=== PATIENT | male | born 1965 | race Caucasian/White ===

== ENCOUNTER 2018-06-17 09:46 | Inpatient (IN) | payer MEDICAID, OTHER ==
[~2018-06-17] VITALS: Ht 185.4 cm; Wt 93.0 kg
[~2018-06-17 09:46] MED LIST: ARIP5TAB4 PO; ASPI-10 PO; ATOR20TA66 PO; CYCL-1 PO; DIVA500T2 PO; DULO60CA64; HYDR-3686 PO; KEP500T PO; LORA-660 PO; METO25TA6 PO; MULT-1085 PO; NAPR-1154 PO
[2018-06-17 10:13] LABS: BASOPHILS # (AUTO) 0.1 X10'3 (0-0.2); BASOPHILS % (AUTO) 1.5 % (0-1); EOSINOPHILS # (AUTO) 0.1 X10'3 (0-0.9); EOSINOPHILS % (AUTO) 1.2 % (0-6); HEMATOCRIT 45.2 % (42.0-52.0); HEMOGLOBIN 15.4 g/dl (14.0-17.9); LYMPHOCYTES # (AUTO) 1.1 X10'3 (1.1-4.8); LYMPHOCYTES % (AUTO) 18.5 % (21-51); MEAN CORPUSCULAR HEMOGLOBIN 31.3 PG (27.0-31.0); MEAN CORPUSCULAR VOLUME 92.1 FL (78-98); MEAN PLATELET VOLUME 7.6 FL (7.4-10.4); MONOCYTES # (AUTO) 0.5 X10'3 (0-0.9); MONOCYTES % (AUTO) 7.7 % (2-12); NEUTROPHILS # (AUTO) 4.2 X10'3 (1.8-7.7); NEUTROPHILS % (AUTO) 71.1 % (42-75); PLATELET COUNT 235 X10'3 (140-440); RED BLOOD COUNT 4.91 X10'6 (4.70-6.10); RED CELL DISTRIBUTION WIDTH 13.8 % (11.5-14.5); WHITE BLOOD COUNT 5.9 X10'3 (4.5-11.0)
[2018-06-17 10:23] LABS: INR 0.9 INR; PARTIAL THROMBOPLASTIN TIME 27 SECONDS (22-32); PROTHROMBIN TIME 9.8 SECONDS (9.0-12.0)
[2018-06-17 10:27] LABS: ALANINE AMINOTRANSFERASE 35 U/L (12-78); ALBUMIN 4.1 G/DL (3.4-5.0); ALBUMIN/GLOBULIN RATIO 1.2 (1.1-1.5); ALKALINE PHOSPHATASE 49 IU/L (46-116); ANION GAP 10 (8-16); ASPARTATE AMINO TRANSFERASE 29 U/L (10-37); BLOOD UREA NITROGEN 14 MG/DL (7-18); BUN/CREATININE RATIO 12.3 (5.4-32.0); CHLORIDE 104 MMOL/L (99-107); CREATININE 1.14 MG/DL (0.60-1.10); GLUCOSE 93 MG/DL (70-104); POTASSIUM 4.4 MMOL/L (3.5-5.1); SODIUM 139 MMOL/L (135-145); TOTAL PROTEIN 7.4 G/DL (6.4-8.2); eGFR 68 ML/MIN
[2018-06-17] MEDS: nitroGLYCERIN 0.4mg SUBLingual tab SL PRN ×5 (11:28→18:00)
[2018-06-17] MEDS ORDERED: acetaminophen 325mg tablet PO PRN (13:00)
[2018-06-17] MEDS ORDERED: diphenhydrAMINE 25mg capsule PO PRN (13:00)
[2018-06-17] MEDS ORDERED: magnesium hydroxide 30ml (MOM) UD suspension PO PRN (13:00)
[2018-06-17] MEDS ORDERED: metoclopramide 5 mg/ml inj IV PRN (13:00)
[2018-06-17] MEDS ORDERED: mag hydrox/Alum hydrox/simeth 30ml oral suspension PO PRN (13:00)
[2018-06-17] MEDS ORDERED: ondansetron/PF 4mg/2ml inj IV PRN (13:00)
[2018-06-17] MEDS ORDERED: diphenhydrAMINE 50 mg/ml inj IV PRN (13:00)
[2018-06-17] MEDS ORDERED: acetaminophen 650mg rectal suppository RC PRN (13:00)
[2018-06-17] MEDS ORDERED: HYDROmorphone inj. 0.5 MG/0.5 ML DISP.SYRIN IV PRN ×2 (13:00)
[2018-06-17] MEDS ORDERED: morphine 4 MG/ML inj SYRINge IV PRN (13:00)
[2018-06-17] MEDS ORDERED: Dextrose 10%-water IV solution 1,000 ML IV PRN (13:09)
[2018-06-17] MEDS ORDERED: fat emulsion IV 100 ML, MVI, adult No.4 with vit. K 5 ML, Trace element-5 inj. 0.5 ML i... IV SCH ×4 (13:09)
[2018-06-17] MEDS ORDERED: magnesium 1gm/100ml D5W IVPB 100 ML IV PRN (13:10)
[2018-06-17] MEDS ORDERED: magnesium 4gm in 100ml NS 100 ML IV PRN (13:10)
[2018-06-17] MEDS ORDERED: magnesium Cl slow-release 64mg tablet PO PRN (13:10)
[2018-06-17] MEDS ORDERED: lisinopril 10 MG tablet PO ONE (13:30)
[2018-06-17] MEDS ORDERED: CAFFEINE CITRATE 60 MG/3 ML injection vial IV PRN (13:30)
[2018-06-17] MEDS ORDERED: metoprolol tartrate 1mg/ml inj IV PRN (13:30)
[2018-06-17] MEDS ORDERED: regadenoson 0.4mg/5ml syringe IV PRN (13:30)
[2018-06-17] MEDS ORDERED: nitroGLYCERIN 0.4mg SUBLingual tab SL PRN (13:30)
[2018-06-17] MEDS: normal saline 1000ml 1,000 ML IV SCH ×2 (13:33→18:28)
[2018-06-17 13:51] LABS: MAGNESIUM 1.9 MG/DL (1.5-2.4)
[2018-06-17 13:55] LABS: D-DIMER 0.27 MG/L FEU (0-0.50)
[2018-06-17 14:07] LABS: HEMOGLOBIN A1C 5.6 % (4.5-6.2)
[2018-06-17] MEDS ORDERED: LURA120T PO (15:16)
[2018-06-17] MEDS ORDERED: LAMO200T PO (15:16)
[2018-06-17] MEDS ORDERED: METO-539 PO (15:16)
[2018-06-17 15:51] LABS: CLARITY,URINE CLEAR (Clear); COLOR,URINE YELLOW (Yellow); GLUCOSE, URINE NEGATIVE (Neg); KETONES,URINE 15 mg/dl (Neg); LEUKOCYTE ESTERASE ,URINE NEGATIVE (Neg); NITRITES, URINE NEGATIVE (Neg); OCCULT BLOOD,URINE NEGATIVE (Neg); PROTEIN,URINE NEGATIVE (Neg); UROBILINOGEN,URINE 0.2 E.U/dL (0.2-1.0)
[2018-06-17 15:53] LABS: UA COLLECTION TYPE CLN CATCH MIDSTREAM
[2018-06-17 16:11] VITALS: BP 134/82
[2018-06-17] MEDS ORDERED: cyclobenzaprine 10mg tablet PO PRN (17:05)
[2018-06-17] MEDS ORDERED: non-formulary drug (Lurasidone HCl (Latuda) 1 TAB) PO SCH (17:05)
[2018-06-17] MEDS ORDERED: lurasidone 60mg tablet PO SCH (17:15)
[2018-06-17 17:24] VITALS: BP 122/87
[2018-06-17 17:55] VITALS: BP 131/98
[2018-06-17 18:00] VITALS: BP 133/100
[2018-06-17 18:17] VITALS: BP 113/74
[2018-06-17] MEDS: atorvastatin 20mg tablet PO SCH (18:24)
[2018-06-17 19:30] VITALS: BP 116/81
[2018-06-17] MEDS: docusate sod 100mg capsule PO SCH (20:00)
[2018-06-17] MEDS: enoxaparin 30mg/0.3ml syringe SQ SCH (20:18)
[2018-06-17] MEDS: levetiracetam 250mg tablet PO SCH (20:19)
[2018-06-17] MEDS: famotidine 20mg tablet PO SCH (20:19)
[2018-06-17] MEDS ORDERED: lurasidone 60mg tablet PO ONE (20:35)
[2018-06-17] MEDS ORDERED: non-formulary drug (Lamotrigine 1 TAB) PO SCH (21:00)
[2018-06-17] MEDS ORDERED: LEVETIRACETAM PO SCH (21:00)
[2018-06-17] MEDS ORDERED: temazepam 15mg capsule PO PRN (21:00)
[2018-06-17] MEDS: lamoTRIgine 100mg tablet PO SCH (22:06)
[2018-06-18] VITALS (16 sets, daily range): BP systolic 109–144; BP diastolic 75–93
[2018-06-18 04:05] LABS: BASOPHILS # (AUTO) 0.1 X10'3 (0-0.2); BASOPHILS % (AUTO) 1.3 % (0-1); EOSINOPHILS # (AUTO) 0.2 X10'3 (0-0.9); EOSINOPHILS % (AUTO) 2.6 % (0-6); HEMATOCRIT 42.9 % (42.0-52.0); HEMOGLOBIN 14.5 g/dl (14.0-17.9); LYMPHOCYTES # (AUTO) 1.4 X10'3 (1.1-4.8); LYMPHOCYTES % (AUTO) 23.2 % (21-51); MEAN CORPUSCULAR HEMOGLOBIN 31.5 PG (27.0-31.0); MEAN CORPUSCULAR HGB CONC 33.9 % (33.0-36.5); MEAN CORPUSCULAR VOLUME 92.9 FL (78-98); MEAN PLATELET VOLUME 7.9 FL (7.4-10.4); MONOCYTES # (AUTO) 0.4 X10'3 (0-0.9); MONOCYTES % (AUTO) 7.5 % (2-12); NEUTROPHILS # (AUTO) 3.8 X10'3 (1.8-7.7); NEUTROPHILS % (AUTO) 65.4 % (42-75); PLATELET COUNT 182 X10'3 (140-440); RED BLOOD COUNT 4.61 X10'6 (4.70-6.10); RED CELL DISTRIBUTION WIDTH 13.7 % (11.5-14.5); WHITE BLOOD COUNT 5.9 X10'3 (4.5-11.0)
[2018-06-18] MEDS: normal saline 1000ml 1,000 ML IV SCH ×2 (04:16→16:57)
[2018-06-18 04:24] LABS: ALANINE AMINOTRANSFERASE 32 U/L (12-78); ALBUMIN 3.3 G/DL (3.4-5.0); ALBUMIN/GLOBULIN RATIO 1.1 (1.1-1.5); ALKALINE PHOSPHATASE 38 IU/L (46-116); ANION GAP 6 (8-16); ASPARTATE AMINO TRANSFERASE 14 U/L (10-37); BILIRUBIN,TOTAL 0.9 MG/DL (0.1-1.0); BLOOD UREA NITROGEN 11 MG/DL (7-18); BUN/CREATININE RATIO 10.1 (5.4-32.0); CALCIUM 8.1 MG/DL (8.5-10.1); CHLORIDE 106 MMOL/L (99-107); CHOL/HDL RATIO 3.6 (0.00-4.99); CHOLESTEROL 162 MG/DL (0-200); CREATININE 1.09 MG/DL (0.60-1.10); GLUCOSE 94 MG/DL (70-104); HDL CHOLESTEROL 45 MG/DL (35-60); LDL CHOLESTEROL 94 MG/DL (50-100); POTASSIUM 3.9 MMOL/L (3.5-5.1); SODIUM 137 MMOL/L (135-145); TOTAL CARBON DIOXIDE 24.7 MMOL/L (24-32); TOTAL PROTEIN 6.2 G/DL (6.4-8.2); TRIGLYCERIDES 165 MG/DL (20-135); eGFR 71 ML/MIN
[2018-06-18] MEDS ORDERED: metoprolol succinate 25mg (24-HOUR) SR. Tablet PO SCH (08:00)
[2018-06-18] MEDS: docusate sod 100mg capsule PO SCH (08:00)
[2018-06-18] MEDS: atorvastatin 20mg tablet PO SCH (08:29)
[2018-06-18] MEDS: levetiracetam 250mg tablet PO SCH ×3 (08:29→22:10)
[2018-06-18] MEDS: aspirin 325mg tablet PO SCH (08:30)
[2018-06-18] MEDS: enoxaparin 30mg/0.3ml syringe SQ SCH (08:30)
[2018-06-18] MEDS: lamoTRIgine 100mg tablet PO SCH ×3 (08:33→22:10)
[2018-06-18] MEDS: morphine 4 MG/ML inj SYRINge IV PRN ×2 (08:48→15:35)
[2018-06-18] MEDS ORDERED: CAFFEINE CITRATE 60 MG/3 ML injection vial IV ONE (09:30)
[2018-06-18] MEDS ORDERED: regadenoson 0.4mg/5ml syringe IV ONE (09:30)
[2018-06-18] MEDS ORDERED: pneumococcal 23-VAL P-sac vacc 25 mcg/0.5ml vial IMVAC ONE (10:00)
[2018-06-18] MEDS: nitroGLYCERIN 0.2mg/hour patch TD SCH ×2 (10:53→22:53)
[2018-06-18] MEDS: pantoprazole 40 MG vial IV SCH (19:00)
[2018-06-18] MEDS ORDERED: LIDOcaine 1% 30ml preserv. free vial ONE (19:06)
[2018-06-18] MEDS ORDERED: iohexol 350MG/ML 100ml bottle IV ONE (19:06)
[2018-06-18] MEDS ORDERED: iohexol 350 MG/ML 50ML vial IV ONE (19:06)
[2018-06-18] MEDS ORDERED: fentaNYL/PF 50MCG/1 ML 2ML syringe ONE (19:06)
[2018-06-18] MEDS ORDERED: midazolam 2 mg/2 ml injection ONE ×2 (19:06→19:31)
[2018-06-18] MEDS ORDERED: proCHLORperazine 10 MG/2 ml inj ONE (19:30)
[2018-06-18] MEDS ORDERED: nitroGLYCERIN-Tridil 50MG/D5W 250 ML IV ONE (19:38)
[2018-06-18] MEDS ORDERED: proCHLORperazine 10 MG/2 ml inj IV PRN (20:50)
[2018-06-18] MEDS ORDERED: cyclobenzaprine 10mg tablet PO PRN (20:50)
[2018-06-18] MEDS ORDERED: nitroGLYCERIN-Tridil 50MG/D5W 250 ML IV SCH (20:50)
[2018-06-18] MEDS ORDERED: morphine 4 MG/ML inj SYRINge IV PRN (20:50)
[2018-06-18] MEDS ORDERED: OXAZEpam 15mg capsule PO PRN (20:50)
[2018-06-18] MEDS ORDERED: magnesium hydroxide 30ml (MOM) UD suspension PO PRN (20:50)
[2018-06-18] MEDS ORDERED: acetaminophen 325mg tablet PO PRN (20:50)
[2018-06-18] MEDS ORDERED: morphine 10mg/ml inj. IV PRN (20:50)
[2018-06-18] MEDS ORDERED: amLODIPine 2.5mg tablet PO ONE (20:55)
[2018-06-18] MEDS ORDERED: morphine 2 MG/ML inj. syringe IV PRN (20:57)
[2018-06-18] MEDS: ALPRAZolam 0.25mg tablet PO SCH (21:00)
[2018-06-18] MEDS: famotidine 20mg tablet PO SCH (22:09)
[2018-06-19] VITALS (11 sets, daily range): BP systolic 125–150; BP diastolic 79–98
[2018-06-19] MEDS: normal saline 1000ml 1,000 ML IV SCH ×2 (04:57→15:03)
[2018-06-19 05:53] LABS: BASOPHILS % (AUTO) 0.3 % (0-1); EOSINOPHILS # (AUTO) 0.1 X10'3 (0-0.9); EOSINOPHILS % (AUTO) 1.1 % (0-6); HEMATOCRIT 39.6 % (42.0-52.0); HEMOGLOBIN 13.6 g/dl (14.0-17.9); LYMPHOCYTES # (AUTO) 1.1 X10'3 (1.1-4.8); LYMPHOCYTES % (AUTO) 15.8 % (21-51); MEAN CORPUSCULAR HEMOGLOBIN 31.7 PG (27.0-31.0); MEAN CORPUSCULAR HGB CONC 34.4 % (33.0-36.5); MEAN CORPUSCULAR VOLUME 92.2 FL (78-98); MEAN PLATELET VOLUME 8.1 FL (7.4-10.4); MONOCYTES # (AUTO) 0.5 X10'3 (0-0.9); MONOCYTES % (AUTO) 6.6 % (2-12); NEUTROPHILS # (AUTO) 5.2 X10'3 (1.8-7.7); NEUTROPHILS % (AUTO) 76.2 % (42-75); PLATELET COUNT 187 X10'3 (140-440); RED CELL DISTRIBUTION WIDTH 13.7 % (11.5-14.5); WHITE BLOOD COUNT 6.8 X10'3 (4.5-11.0)
[2018-06-19 06:19] LABS: ALANINE AMINOTRANSFERASE 35 U/L (12-78); ALBUMIN 3.2 G/DL (3.4-5.0); ALBUMIN/GLOBULIN RATIO 1.2 (1.1-1.5); ALKALINE PHOSPHATASE 35 IU/L (46-116); ANION GAP 7 (8-16); ASPARTATE AMINO TRANSFERASE 16 U/L (10-37); BILIRUBIN,TOTAL 0.8 MG/DL (0.1-1.0); BLOOD UREA NITROGEN 8 MG/DL (7-18); BUN/CREATININE RATIO 7.1 (5.4-32.0); CALCIUM 7.8 MG/DL (8.5-10.1); CHLORIDE 106 MMOL/L (99-107); CREATININE 1.12 MG/DL (0.60-1.10); GLUCOSE 86 MG/DL (70-104); POTASSIUM 3.8 MMOL/L (3.5-5.1); SODIUM 138 MMOL/L (135-145); TOTAL CARBON DIOXIDE 24.7 MMOL/L (24-32); TOTAL PROTEIN 5.9 G/DL (6.4-8.2); eGFR 69 ML/MIN
[2018-06-19] MEDS: docusate sod 100mg capsule PO SCH ×2 (08:05→20:00)
[2018-06-19] MEDS: atorvastatin 20mg tablet PO SCH (08:05)
[2018-06-19] MEDS: aspirin 325mg tablet PO SCH (08:05)
[2018-06-19] MEDS: ALPRAZolam 0.25mg tablet PO SCH ×2 (08:05→20:00)
[2018-06-19] MEDS: levetiracetam 250mg tablet PO SCH ×3 (08:05→20:16)
[2018-06-19] MEDS: amLODIPine 2.5mg tablet PO SCH (08:05)
[2018-06-19] MEDS: lamoTRIgine 100mg tablet PO SCH ×3 (08:05→20:15)
[2018-06-19] MEDS: pantoprazole 40 MG vial IV SCH (08:06)
[2018-06-19] MEDS: enoxaparin 30mg/0.3ml syringe SUBCUT SCH ×2 (08:06→20:15)
[2018-06-19] MEDS: morphine 4 MG/ML inj SYRINge IV PRN (14:05)
[2018-06-19] MEDS ORDERED: morphine 2 MG/ML inj. syringe IV PRN (15:25)
[2018-06-19] MEDS ORDERED: HYDROmorphone 1 mg/ml syringe IV PRN ×2 (15:25)
[2018-06-20] VITALS (9 sets, daily range): BP systolic 122–143; BP diastolic 58–95
[2018-06-20] MEDS: normal saline 1000ml 1,000 ML IV SCH ×2 (00:57→10:57)
[2018-06-20] MEDS: morphine 4 MG/ML inj SYRINge IV PRN (05:55)
[2018-06-20 06:27] LABS: BASOPHILS % (AUTO) 0.2 % (0-1); EOSINOPHILS # (AUTO) 0.1 X10'3 (0-0.9); EOSINOPHILS % (AUTO) 0.9 % (0-6); HEMATOCRIT 43.2 % (42.0-52.0); HEMOGLOBIN 14.7 g/dl (14.0-17.9); LYMPHOCYTES # (AUTO) 0.9 X10'3 (1.1-4.8); LYMPHOCYTES % (AUTO) 11.9 % (21-51); MEAN CORPUSCULAR HEMOGLOBIN 31.6 PG (27.0-31.0); MEAN CORPUSCULAR HGB CONC 34.1 % (33.0-36.5); MEAN CORPUSCULAR VOLUME 92.8 FL (78-98); MEAN PLATELET VOLUME 8.3 FL (7.4-10.4); MONOCYTES # (AUTO) 0.7 X10'3 (0-0.9); MONOCYTES % (AUTO) 8.5 % (2-12); NEUTROPHILS % (AUTO) 78.5 % (42-75); PLATELET COUNT 202 X10'3 (140-440); RED BLOOD COUNT 4.66 X10'6 (4.70-6.10); RED CELL DISTRIBUTION WIDTH 13.4 % (11.5-14.5); WHITE BLOOD COUNT 7.7 X10'3 (4.5-11.0)
[2018-06-20 06:42] LABS: ALANINE AMINOTRANSFERASE 30 U/L (12-78); ALBUMIN 3.5 G/DL (3.4-5.0); ALBUMIN/GLOBULIN RATIO 1.1 (1.1-1.5); ALKALINE PHOSPHATASE 43 IU/L (46-116); ANION GAP 6 (8-16); ASPARTATE AMINO TRANSFERASE 17 U/L (10-37); BILIRUBIN,TOTAL 0.8 MG/DL (0.1-1.0); BLOOD UREA NITROGEN 7 MG/DL (7-18); BUN/CREATININE RATIO 5.9 (5.4-32.0); CALCIUM 8.5 MG/DL (8.5-10.1); CHLORIDE 103 MMOL/L (99-107); CREATININE 1.19 MG/DL (0.60-1.10); GLUCOSE 89 MG/DL (70-104); POTASSIUM 3.9 MMOL/L (3.5-5.1); SODIUM 138 MMOL/L (135-145); TOTAL PROTEIN 6.6 G/DL (6.4-8.2); eGFR 64 ML/MIN
[2018-06-20] MEDS ORDERED: pantoprazole 40mg Tablet.DR PO SCH (07:30)
[2018-06-20] MEDS: ALPRAZolam 0.25mg tablet PO SCH (08:00)
[2018-06-20] MEDS: enoxaparin 30mg/0.3ml syringe SUBCUT SCH (08:00)
[2018-06-20] MEDS: docusate sod 100mg capsule PO SCH (08:04)
[2018-06-20] MEDS: lamoTRIgine 100mg tablet PO SCH (08:04)
[2018-06-20] MEDS: levetiracetam 250mg tablet PO SCH (08:05)
[2018-06-20] MEDS: amLODIPine 2.5mg tablet PO SCH (08:06)
[2018-06-20] MEDS: atorvastatin 20mg tablet PO SCH (08:06)
[2018-06-20] MEDS ORDERED: LIDOcaine Viscous 15ml cup ONE (08:23)
[2018-06-20] MEDS ORDERED: fentaNYL/PF 50MCG/1 ML 2ML syringe ONE (08:23)
[2018-06-20] MEDS ORDERED: MIDAZolam 5mg/5ml vial ONE (08:23)
[2018-06-20] MEDS: aspirin 325mg tablet PO SCH (08:30)
[2018-06-20] MEDS ORDERED: normal saline 1000ml 1,000 ML IV SCH (09:04)
[2018-06-20] MEDS ORDERED: LIDOcaine Viscous 15ml cup PO ONE (09:05)
[2018-06-20] MEDS ORDERED: simethicone 40mg/0.6ml oral drops 30ml MC ONE (09:05)
[2018-06-20] MEDS ORDERED: MIDAZolam 5mg/5ml vial IV PRN (09:05)
[2018-06-20] MEDS ORDERED: fentaNYL/PF 50MCG/1 ML 2ML syringe IV PRN (09:05)
[2018-06-20] MEDS ORDERED: TRAM50TA2 PO (12:22)
[2018-06-20] MEDS ORDERED: ASPI-1265 PO (12:22)
[2018-06-20] MEDS ORDERED: PANT40TA4 PO (12:22)
[2018-06-20] MEDS ORDERED: lurasidone 60mg tablet PO SCH (18:00)
== END 2018-06-20 14:35 | disposition home or self-care (01) | DRG 287 ==
LOC: ER 09:46 → ED HOLD 12:57 → SUR 3N 15:55 → CICU 2S 06-18 20:06 → PCU 3S 06-19 07:02
PROVIDERS: ADMIT Family Medicine; ATTEND Family Medicine
PROC: 4A023N7 Measurement of Cardiac Sampling and Pressure, Left Heart, Percutaneous Approach (ICD-10-PCS; principal; 2018-06-18)
PROC: B2111ZZ Fluoroscopy of Multiple Coronary Arteries using Low Osmolar Contrast (ICD-10-PCS; 2018-06-18)
PROC: B2151ZZ Fluoroscopy of Left Heart using Low Osmolar Contrast (ICD-10-PCS; 2018-06-18)
PROC: B41F1ZZ Fluoroscopy of Right Lower Extremity Arteries using Low Osmolar Contrast (ICD-10-PCS; 2018-06-18)
PROC: 3E033HZ Introduction of Radioactive Substance into Peripheral Vein, Percutaneous Approach (ICD-10-PCS; 2018-06-18)
PROC: 4A02XM4 Measurement of Cardiac Total Activity, External Approach (ICD-10-PCS; 2018-06-18)
PROC: 0DB68ZX Excision of Stomach, Via Natural or Artificial Opening Endoscopic, Diagnostic (ICD-10-PCS; 2018-06-20)
DX: R07.89 Other chest pain (principal); M84.48XA Pathological fracture, other site, initial encounter for fracture; I25.10 Atherosclerotic heart disease of native coronary artery without angina pectoris; G40.909 Epilepsy, unspecified, not intractable, without status epilepticus; I10 Essential (primary) hypertension; F41.9 Anxiety disorder, unspecified; G89.29 Other chronic pain; M54.6 Pain in thoracic spine; K21.9 Gastro-esophageal reflux disease without esophagitis; K31.89 Other diseases of stomach and duodenum; K29.00 Acute gastritis without bleeding; K44.9 Diaphragmatic hernia without obstruction or gangrene; Z79.82 Long term (current) use of aspirin; Z95.5 Presence of coronary angioplasty implant and graft; I25.2 Old myocardial infarction; Z23 Encounter for immunization; Z88.8 Allergy status to other drugs, medicaments and biological substances; Z79.899 Other long term (current) drug therapy
CPT/HCPCS: 36415; 43239; 71045; 72146; 78452; 80053; 80061; 81003; 83036; 83735; 83880; 84484; 85025; 85379; 85610; 85730; 87070; 90732; 93005; 93017; 93458; 99152; 99153; 99285; A4620; A6213; A6257; A9500; C1760; C1769; C9113; G0500; J0780; J1170; J1644; J1650; J2250; J2270; J3010; J3490; J7030; Q9967

== ENCOUNTER 2020-07-26 14:09 | Emergency (ER) | payer MEDICAID, OTHER ==
[~2020-07-26] VITALS: Ht 185.4 cm; Wt 88.0 kg
[~2020-07-26 14:09] MED LIST changes: -ARIP5TAB4 PO; -ASPI-10 PO; -DIVA500T2 PO; -DULO60CA64; -HYDR-3686 PO; +LAMO200T10 PO; -LORA-660 PO; +LURA120T PO; +METO-539 PO; -METO25TA6 PO; -MULT-1085 PO; -NAPR-1154 PO; +PANT40TA54 PO
[2020-07-26 14:13] VITALS: BP 141/81
[2020-07-26] MEDS ORDERED: bacitracin 15gm ointment TP ONE (14:30)
[2020-07-26] MEDS ORDERED: AMOX-422 PO (14:32)
== END 2020-07-26 15:24 | disposition home or self-care (01) ==
LOC: ER 14:09
DX: S30.811A Abrasion of abdominal wall, initial encounter (principal); I25.10 Atherosclerotic heart disease of native coronary artery without angina pectoris; I25.2 Old myocardial infarction; G89.29 Other chronic pain; F41.9 Anxiety disorder, unspecified; Z86.69 Personal history of other diseases of the nervous system and sense organs; Z98.890 Other specified postprocedural states; Z88.8 Allergy status to other drugs, medicaments and biological substances; Z79.2 Long term (current) use of antibiotics; Z79.899 Other long term (current) drug therapy; W54.0XXA Bitten by dog, initial encounter; Y93.89 Activity, other specified; Y92.89 Other specified places as the place of occurrence of the external cause; Y99.8 Other external cause status
CPT/HCPCS: 99283

== ENCOUNTER 2021-01-16 13:18 | Emergency (ER) | payer OTHER ==
[~2021-01-16] VITALS: Ht 185.4 cm; Wt 93.2 kg
[2021-01-16 16:41] VITALS: BP 150/100
--- NOTE | 2021-01-16 16:44 | NUR ---
PT DISCHARGED BEFORE NURSING ASSESSMENTS DONE, DISCHARGED BY KNOT CUTTER
== END 2021-01-16 16:43 | disposition home or self-care (01) ==
LOC: ER 13:19
DX: S09.90XA Unspecified injury of head, initial encounter (principal); I25.10 Atherosclerotic heart disease of native coronary artery without angina pectoris; I25.2 Old myocardial infarction; G89.29 Other chronic pain; F41.9 Anxiety disorder, unspecified; Z86.69 Personal history of other diseases of the nervous system and sense organs; Z98.890 Other specified postprocedural states; Z72.89 Other problems related to lifestyle; Z88.8 Allergy status to other drugs, medicaments and biological substances; Z79.899 Other long term (current) drug therapy; X58.XXXA Exposure to other specified factors, initial encounter; Y93.89 Activity, other specified; Y92.89 Other specified places as the place of occurrence of the external cause; Y99.8 Other external cause status
CPT/HCPCS: 70450; 99284

== ENCOUNTER 2023-04-13 18:13 | Emergency (ER) | payer MEDICAID, OTHER ==
[~2023-04-13] VITALS: Ht 185.4 cm; Wt 90.1 kg
[2023-04-13 18:19] VITALS: BP 140/60
[2023-04-13] MEDS ORDERED: ketorolac trometh. 30mg/ml inj. IM ONE (19:10)
[2023-04-13] MEDS ORDERED: oxyCODONE/APAP 5-325mg tablet PO ONE (19:50)
[2023-04-13] MEDS ORDERED: OXYC-145 PO (19:50)
[2023-04-13] MEDS ORDERED: IBUP-1984 PO (19:50)
== END 2023-04-13 20:06 | disposition home or self-care (01) ==
LOC: ER 18:14
DX: S62.306A Unspecified fracture of fifth metacarpal bone, right hand, initial encounter for closed fracture (principal); Z88.8 Allergy status to other drugs, medicaments and biological substances; Z88.5 Allergy status to narcotic agent; X58.XXXA Exposure to other specified factors, initial encounter; Y93.89 Activity, other specified; Y92.89 Other specified places as the place of occurrence of the external cause; Y99.8 Other external cause status
CPT/HCPCS: 29125; 73130; 96372; 99283; J1885; A6446; A6449

== ENCOUNTER 2023-09-13 14:06 | Emergency (ER) | payer BC, MEDICAID ==
[~2023-09-13] VITALS: Ht 185.4 cm; Wt 84.6 kg
[~2023-09-13 14:06] MED LIST changes: +OXYC-145 PO
[2023-09-13 14:09] VITALS: TEMP 98.2
[2023-09-13 14:53] LABS: URINE AMPHETAMINE SCREEN NEGATIVE (Neg); URINE BARBITUATE SCREEN NEGATIVE (Neg); URINE BENZODIAZEPINES SCREEN NEGATIVE (Neg); URINE CANNABINOID SCREEN POSITIVE (Neg); URINE COCAINE SCREEN POSITIVE (Neg); URINE METHADONE SCREEN NEGATIVE (Neg); URINE OPIATE SCREEN NEGATIVE (Neg); URINE PHENCYCLIDINE SCREEN NEGATIVE (Neg)
[2023-09-13] MEDS ORDERED: LORazepam 2 mg/ml vial IV ONE (15:25)
[2023-09-13 15:27] LABS: BASOPHILS % (AUTO) 0.4 % (0-1); EOSINOPHILS % (AUTO) 0.1 % (0-6); HEMATOCRIT 45.8 % (42.0-52.0); HEMOGLOBIN 15.4 g/dl (14.0-17.9); LYMPHOCYTES # (AUTO) 0.5 X10'3 (1.1-4.8); LYMPHOCYTES % (AUTO) 5.2 % (21-51); MEAN CORPUSCULAR HEMOGLOBIN 33.4 PG (27.0-31.0); MEAN CORPUSCULAR HGB CONC 33.6 g/dL (33.0-36.5); MEAN CORPUSCULAR VOLUME 99.7 FL (78-98); MEAN PLATELET VOLUME 8.1 FL (7.4-10.4); MONOCYTES # (AUTO) 0.6 X10'3 (0-0.9); MONOCYTES % (AUTO) 5.8 % (2-12); NEUTROPHILS # (AUTO) 8.8 X10'3 (1.8-7.7); NEUTROPHILS % (AUTO) 88.5 % (42-75); PLATELET COUNT 207 X10'3 (140-440); RED CELL DISTRIBUTION WIDTH 14.2 % (11.5-14.5); WHITE BLOOD COUNT 9.9 X10'3 (4.5-11.0)
[2023-09-13 15:41] LABS: ALANINE AMINOTRANSFERASE 70 U/L (12-78); ALBUMIN 3.7 G/DL (3.4-5.0); ALBUMIN/GLOBULIN RATIO 1.2 (1.1-1.5); ALKALINE PHOSPHATASE 49 IU/L (46-116); ANION GAP 14 (8-16); ASPARTATE AMINO TRANSFERASE 81 U/L (10-37); BILIRUBIN,TOTAL 1.3 MG/DL (0.1-1.0); BLOOD UREA NITROGEN 10 MG/DL (7-18); BUN/CREATININE RATIO 10.2 (10.0-20.0); CALCIUM 8.5 MG/DL (8.5-10.1); CHLORIDE 98 MMOL/L (99-107); CREATININE 0.98 MG/DL (0.60-1.10); ETHANOL < 10 MG/DL (<10); GLUCOSE 84 MG/DL (70-104); POTASSIUM 3.9 MMOL/L (3.5-5.1); SODIUM 134 MMOL/L (135-145); TOTAL CARBON DIOXIDE 22.4 MMOL/L (24-32); TOTAL PROTEIN 6.9 G/DL (6.4-8.2); eCRCL 95 ML/MIN; eGFR 79 ML/MIN
[2023-09-13 15:44] LABS: CREATINE KINASE 211 U/L (39-308)
[2023-09-13] MEDS: normal saline 1000ml 1,000 ML IV SCH ×2 (16:03→16:24)
[2023-09-13 17:29] VITALS: BP 163/98; PULSE 87; RESP 16; O2SAT 99
== END 2023-09-13 17:25 | disposition home or self-care (01) ==
LOC: ER 14:06
DX: M54.6 Pain in thoracic spine (principal); F14.10 Cocaine abuse, uncomplicated; I25.10 Atherosclerotic heart disease of native coronary artery without angina pectoris; I25.2 Old myocardial infarction; G89.29 Other chronic pain; F41.9 Anxiety disorder, unspecified; Z86.69 Personal history of other diseases of the nervous system and sense organs; Z95.5 Presence of coronary angioplasty implant and graft; Z98.890 Other specified postprocedural states; Z72.89 Other problems related to lifestyle; Z88.5 Allergy status to narcotic agent; Z79.899 Other long term (current) drug therapy
CPT/HCPCS: 36415; 72128; 72131; 80053; 80305; 80320; 82550; 85025; 96361; 96374; 99285; J2060; J7030

== ENCOUNTER 2023-10-13 10:37 | Emergency (ER) | payer BC ==
[~2023-10-13] VITALS: Ht 185.4 cm; Wt 87.8 kg
[2023-10-13 11:29] LABS: BASOPHILS # (AUTO) 0.1 X10'3 (0-0.2); EOSINOPHILS % (AUTO) 0.3 % (0-6); HEMATOCRIT 46.3 % (42.0-52.0); HEMOGLOBIN 15.6 g/dl (14.0-17.9); LYMPHOCYTES # (AUTO) 0.9 X10'3 (1.1-4.8); LYMPHOCYTES % (AUTO) 6.3 % (21-51); MEAN CORPUSCULAR HEMOGLOBIN 32.8 PG (27.0-31.0); MEAN CORPUSCULAR HGB CONC 33.7 g/dL (33.0-36.5); MEAN CORPUSCULAR VOLUME 97.3 FL (78-98); MEAN PLATELET VOLUME 7.7 FL (7.4-10.4); MONOCYTES # (AUTO) 0.7 X10'3 (0-0.9); MONOCYTES % (AUTO) 5.3 % (2-12); NEUTROPHILS # (AUTO) 11.8 X10'3 (1.8-7.7); NEUTROPHILS % (AUTO) 87.1 % (42-75); PLATELET COUNT 216 X10'3 (140-440); RED BLOOD COUNT 4.76 X10'6 (4.70-6.10); RED CELL DISTRIBUTION WIDTH 14.1 % (11.5-14.5); WHITE BLOOD COUNT 13.6 X10'3 (4.5-11.0)
[2023-10-13 11:36] LABS: ALANINE AMINOTRANSFERASE 18 U/L (12-78); ALBUMIN 3.9 G/DL (3.4-5.0); ALBUMIN/GLOBULIN RATIO 1.1 (1.1-1.5); ALKALINE PHOSPHATASE 49 IU/L (46-116); ANION GAP 11 (8-16); ASPARTATE AMINO TRANSFERASE 31 U/L (10-37); BLOOD UREA NITROGEN 8 MG/DL (7-18); BUN/CREATININE RATIO 8.4 (10.0-20.0); CALCIUM 8.9 MG/DL (8.5-10.1); CHLORIDE 101 MMOL/L (99-107); CREATININE 0.95 MG/DL (0.60-1.10); GLUCOSE 96 MG/DL (70-104); POTASSIUM 3.6 MMOL/L (3.5-5.1); SODIUM 137 MMOL/L (135-145); TOTAL PROTEIN 7.6 G/DL (6.4-8.2); eCRCL 98 ML/MIN; eGFR 82 ML/MIN
[2023-10-13 11:44] LABS: ETHANOL < 10 MG/DL (<10)
[2023-10-13] MEDS ORDERED: tetanus & diphtheria toxoid (Td) vaccine 0.5ml IMVAC ONE (12:25)
[2023-10-13] MEDS ORDERED: levetiracetam 250mg tablet PO ONE (12:25)
[2023-10-13] MEDS ORDERED: TETanus/Pertussis (Acell)/Diphther VAC/PF (Tdap-Adult) 0.5ml syringe IMVAC ONE (12:50)
[2023-10-13] MEDS ORDERED: LEVE10002 PO (13:54)
[2023-10-13 14:28] LABS: BILIRUBIN,URINE SMALL (Neg); CLARITY,URINE CLEAR (Clear); COLOR,URINE YELLOW (Yellow); GLUCOSE, URINE NEGATIVE (Neg); KETONES,URINE >=80 mg/dl (Neg); LEUKOCYTE ESTERASE ,URINE NEGATIVE (Neg); NITRITES, URINE NEGATIVE (Neg); OCCULT BLOOD,URINE NEGATIVE (Neg); PH,URINE 6.5 (4.8-8.0); PROTEIN,URINE TRACE mg/dl (Neg); UA COLLECTION TYPE CLN CATCH MIDSTREAM; UROBILINOGEN,URINE 0.2 E.U/dL (0.2-1.0)
[2023-10-13 14:34] LABS: BACTERIA,URINE NONE SEEN /HPF (Neg); RBC,URINE NONE SEEN /HPF (0-2); WBC,URINE 0-4 /HPF (0-4)
[2023-10-13 14:35] LABS: MUCUS STRANDS MODERATE /LPF (Neg); SQUAMOUS EPITHELIAL CELL,UR FEW /LPF (FEW)
[2023-10-13 14:37] LABS: URINE AMPHETAMINE SCREEN NEGATIVE (Neg); URINE BARBITUATE SCREEN NEGATIVE (Neg); URINE BENZODIAZEPINES SCREEN NEGATIVE (Neg); URINE CANNABINOID SCREEN POSITIVE (Neg); URINE COCAINE SCREEN POSITIVE (Neg); URINE METHADONE SCREEN NEGATIVE (Neg); URINE OPIATE SCREEN NEGATIVE (Neg); URINE PHENCYCLIDINE SCREEN NEGATIVE (Neg)
[2023-10-13 15:09] VITALS: BP 139/75; PULSE 67; RESP 15; TEMP 98; O2SAT 98
== END 2023-10-13 15:12 | disposition home or self-care (01) ==
LOC: ER 10:38
DX: S05.32XA Ocular laceration without prolapse or loss of intraocular tissue, left eye, initial encounter (principal); G40.909 Epilepsy, unspecified, not intractable, without status epilepticus; F14.10 Cocaine abuse, uncomplicated; I25.10 Atherosclerotic heart disease of native coronary artery without angina pectoris; I25.2 Old myocardial infarction; F12.90 Cannabis use, unspecified, uncomplicated; Z95.5 Presence of coronary angioplasty implant and graft; Z98.890 Other specified postprocedural states; Z88.8 Allergy status to other drugs, medicaments and biological substances; Z23 Encounter for immunization; Z79.899 Other long term (current) drug therapy; W22.8XXA Striking against or struck by other objects, initial encounter; Y93.89 Activity, other specified; Y92.89 Other specified places as the place of occurrence of the external cause; Y99.8 Other external cause status
CPT/HCPCS: 12011; 36415; 70450; 70486; 71045; 72125; 80053; 80305; 80320; 81001; 82140; 84145; 84484; 85025; 90471; 90715; 93005; 99285

== ENCOUNTER 2023-12-30 08:06 | Inpatient (IN) | payer BC, MEDICAID ==
[2023-12-30] VITALS (13 sets, daily range): BP systolic 104–158; BP diastolic 72–92; PULSE 42–69; RESP 15–18; TEMP 96.9–98.2; O2SAT 97–98
[~2023-12-30] VITALS: Ht 185.4 cm; Wt 94.7 kg
[~2023-12-30 08:06] MED LIST changes: +LEVE10002 PO; +heparin 10,000 units/1 ML INJ ONE; +heparin, porcine-25,000 units/D5-250ml premix IV ONE
[2023-12-30 08:33] LABS: BASOPHILS % (AUTO) 0.3 % (0-1); EOSINOPHILS # (AUTO) 0.2 X10'3 (0-0.9); EOSINOPHILS % (AUTO) 2.5 % (0-6); HEMOGLOBIN 16.4 g/dl (14.0-17.9); LYMPHOCYTES # (AUTO) 1.1 X10'3 (1.1-4.8); LYMPHOCYTES % (AUTO) 13.4 % (21-51); MEAN CORPUSCULAR HEMOGLOBIN 33.5 PG (27.0-31.0); MEAN CORPUSCULAR HGB CONC 34.1 g/dL (33.0-36.5); MEAN CORPUSCULAR VOLUME 98.1 FL (78-98); MEAN PLATELET VOLUME 7.9 FL (7.4-10.4); MONOCYTES # (AUTO) 0.5 X10'3 (0-0.9); MONOCYTES % (AUTO) 6.7 % (2-12); NEUTROPHILS # (AUTO) 6.3 X10'3 (1.8-7.7); NEUTROPHILS % (AUTO) 77.1 % (42-75); PLATELET COUNT 225 X10'3 (140-440); RED BLOOD COUNT 4.89 X10'6 (4.70-6.10); RED CELL DISTRIBUTION WIDTH 14.1 % (11.5-14.5); WHITE BLOOD COUNT 8.2 X10'3 (4.5-11.0)
[2023-12-30 08:46] LABS: ALANINE AMINOTRANSFERASE 25 U/L (12-78); ALBUMIN 3.5 G/DL (3.4-5.0); ALKALINE PHOSPHATASE 49 IU/L (46-116); ANION GAP 8 (8-16); ASPARTATE AMINO TRANSFERASE 22 U/L (10-37); BILIRUBIN,TOTAL 0.6 MG/DL (0.1-1.0); BLOOD UREA NITROGEN 7 MG/DL (7-18); BUN/CREATININE RATIO 6.4 (10.0-20.0); CALCIUM 8.4 MG/DL (8.5-10.1); CHLORIDE 104 MMOL/L (99-107); GLUCOSE 98 MG/DL (70-104); POTASSIUM 4.1 MMOL/L (3.5-5.1); SODIUM 140 MMOL/L (135-145); TOTAL CARBON DIOXIDE 27.8 MMOL/L (24-32); TOTAL PROTEIN 7.1 G/DL (6.4-8.2); eCRCL 85 ML/MIN; eGFR 69 ML/MIN
[2023-12-30] MEDS: aspirin 325mg tablet PO ONE (08:48)
[2023-12-30] MEDS: morphine 2 MG/ML inj. syringe IV ONE (08:48)
[2023-12-30] MEDS: nitroGLYCERIN 1gm ointment UD TP ONE (08:48)
[2023-12-30] MEDS: ondansetron/PF 4mg/2ml inj IV ONE (08:49)
[2023-12-30 08:52] LABS: PRO BRAIN NATRIURETIC PEPTIDE 53 PG/ML (0-125)
[2023-12-30] MEDS: morphine 4 MG/ML inj SYRINge IV ONE (09:06)
[2023-12-30] MEDS ORDERED: diphenhydrAMINE 25mg capsule PO PRN (09:40)
[2023-12-30] MEDS: aspirin 81mg tab.chew PO SCH (09:40)
[2023-12-30] MEDS ORDERED: regadenoson 0.4mg/5ml syringe IV PRN (09:40)
[2023-12-30] MEDS ORDERED: mag hydrox/Alum hydrox/simeth 30ml oral suspension PO PRN (09:40)
[2023-12-30] MEDS ORDERED: hydrALAZINE 20mg/ml inj. IV PRN (09:40)
[2023-12-30] MEDS ORDERED: potassium Cl 40MEQ/1/2NS 520ml 520 ML IV PRN (09:40)
[2023-12-30] MEDS ORDERED: magnesium hydroxide 30ml (MOM) UD suspension PO PRN (09:40)
[2023-12-30] MEDS ORDERED: magnesium Cl slow-release 64mg tablet PO PRN (09:40)
[2023-12-30] MEDS ORDERED: ondansetron/PF 4mg/2ml inj IV PRN (09:40)
[2023-12-30] MEDS ORDERED: potassium Cl 20 mEq SR tablet PO PRN ×2 (09:40)
[2023-12-30] MEDS ORDERED: magnesium 2GM in 50ml NS 50 ML IV PRN (09:40)
[2023-12-30] MEDS ORDERED: aminophylline 250mg/10ml inj. IV PRN (09:40)
[2023-12-30] MEDS ORDERED: metoprolol tartrate 1mg/ml inj IV PRN (09:40)
[2023-12-30] MEDS ORDERED: nitroGLYCERIN 0.4mg SUBLingual tab SL PRN (09:40)
[2023-12-30] MEDS ORDERED: magnesium 4gm in 100ml NS 100 ML IV PRN (09:40)
[2023-12-30] MEDS ORDERED: acetaminophen 325mg tablet PO PRN (09:40)
[2023-12-30 10:25] LABS: MAGNESIUM 2.4 MG/DL (1.5-2.4)
[2023-12-30 10:38] LABS: HEMOGLOBIN A1C 5.2 % (4.5-6.2)
[2023-12-30] MEDS: atorvastatin 20mg tablet PO SCH (10:43)
[2023-12-30] MEDS ORDERED: LIDOcaine 1% 30ml preserv. free vial ONE (10:56)
[2023-12-30] MEDS ORDERED: iohexol 350MG/ML 100ml bottle IV ONE ×2 (10:57→11:19)
[2023-12-30] MEDS ORDERED: midazolam 1 mg/ML 2ml injection ONE (10:57)
[2023-12-30] MEDS ORDERED: heparin 1,000 UNITS/NS 500ml 500 ML ONE (10:57)
[2023-12-30] MEDS ORDERED: fentaNYL/PF 50MCG/1 ML 2ML syringe ONE (10:57)
[2023-12-30] MEDS ORDERED: heparin 25,000 UNIT/250ml bag 250 ML IV PRN (11:05)
[2023-12-30] MEDS: heparin 10,000 units/1 ML INJ IV PRN (11:17)
[2023-12-30] MEDS: heparin 10,000 units/1 ML INJ IV ONE (11:17)
[2023-12-30] MEDS ORDERED: heparin 1,000unit/ml 10ml vial 10 ML ONE (11:27)
[2023-12-30] MEDS ORDERED: clopidogrel 300mg tablet ONE (11:27)
[2023-12-30 11:34] LABS: APTT 29 SECONDS (22-32)
[2023-12-30] MEDS ORDERED: tirofiban 12.5mg in NS 250mL 250 ML IV ONE (11:53)
[2023-12-30] MEDS: morphine 2 MG/ML inj. syringe IV PRN (12:56)
[2023-12-30 12:57] LABS: CHOL/HDL RATIO 4.4 (0.00-4.99); CHOLESTEROL 222 MG/DL (0-200); HDL CHOLESTEROL 50 MG/DL (35-60); LDL CHOLESTEROL 150 MG/DL (50-100); TRIGLYCERIDES 101 MG/DL (20-135)
[2023-12-30] MEDS: tirofiban 12.5mg in NS 250mL IV SCH (17:01)
[2023-12-30 18:07] LABS: BASOPHILS % (AUTO) 0.5 % (0-1); EOSINOPHILS # (AUTO) 0.1 X10'3 (0-0.9); EOSINOPHILS % (AUTO) 0.9 % (0-6); HEMATOCRIT 43.2 % (42.0-52.0); HEMOGLOBIN 14.6 g/dl (14.0-17.9); LYMPHOCYTES % (AUTO) 11.1 % (21-51); MEAN CORPUSCULAR HGB CONC 33.8 g/dL (33.0-36.5); MEAN CORPUSCULAR VOLUME 97.5 FL (78-98); MEAN PLATELET VOLUME 8.6 FL (7.4-10.4); MONOCYTES # (AUTO) 0.7 X10'3 (0-0.9); MONOCYTES % (AUTO) 7.6 % (2-12); NEUTROPHILS # (AUTO) 7.5 X10'3 (1.8-7.7); NEUTROPHILS % (AUTO) 79.9 % (42-75); PLATELET COUNT 205 X10'3 (140-440); RED BLOOD COUNT 4.43 X10'6 (4.70-6.10); WHITE BLOOD COUNT 9.4 X10'3 (4.5-11.0)
[2023-12-30] MEDS: docusate sod 100mg capsule PO SCH (20:00)
[2023-12-30] MEDS: K and/or MAG REPLACEMENT MC SCH (20:00)
[2023-12-30] MEDS ORDERED: ticagrelor 90mg tablet PO SCH (20:00)
[2023-12-30] MEDS ORDERED: temazepam 15mg capsule PO PRN (21:00)
[2023-12-31 02:00] VITALS: BP 124/89; PULSE 62; RESP 18; TEMP 97.3; O2SAT 96
[2023-12-31 06:00] VITALS: BP 131/81; PULSE 63; RESP 16; TEMP 97.8; O2SAT 98
[2023-12-31 06:48] LABS: BASOPHILS % (AUTO) 0.4 % (0-1); EOSINOPHILS # (AUTO) 0.2 X10'3 (0-0.9); EOSINOPHILS % (AUTO) 2.3 % (0-6); HEMATOCRIT 45.6 % (42.0-52.0); HEMOGLOBIN 15.6 g/dl (14.0-17.9); LYMPHOCYTES % (AUTO) 14.7 % (21-51); MEAN CORPUSCULAR HEMOGLOBIN 33.5 PG (27.0-31.0); MEAN CORPUSCULAR HGB CONC 34.1 g/dL (33.0-36.5); MEAN PLATELET VOLUME 8.4 FL (7.4-10.4); MONOCYTES # (AUTO) 0.7 X10'3 (0-0.9); MONOCYTES % (AUTO) 9.8 % (2-12); NEUTROPHILS # (AUTO) 5.2 X10'3 (1.8-7.7); NEUTROPHILS % (AUTO) 72.8 % (42-75); PLATELET COUNT 195 X10'3 (140-440); RED BLOOD COUNT 4.65 X10'6 (4.70-6.10); WHITE BLOOD COUNT 7.1 X10'3 (4.5-11.0)
[2023-12-31 06:57] LABS: ALANINE AMINOTRANSFERASE 22 U/L (12-78); ALBUMIN 3.1 G/DL (3.4-5.0); ALKALINE PHOSPHATASE 45 IU/L (46-116); ANION GAP 8 (8-16); ASPARTATE AMINO TRANSFERASE 27 U/L (10-37); BILIRUBIN,TOTAL 1.3 MG/DL (0.1-1.0); BLOOD UREA NITROGEN 6 MG/DL (7-18); BUN/CREATININE RATIO 6.1 (10.0-20.0); CALCIUM 7.9 MG/DL (8.5-10.1); CHLORIDE 106 MMOL/L (99-107); CHOL/HDL RATIO 4.8 (0.00-4.99); CHOLESTEROL 197 MG/DL (0-200); CREATININE 0.99 MG/DL (0.60-1.10); GLUCOSE 97 MG/DL (70-104); HDL CHOLESTEROL 41 MG/DL (35-60); LDL CHOLESTEROL 133 MG/DL (50-100); MAGNESIUM 1.9 MG/DL (1.5-2.4); POTASSIUM 3.8 MMOL/L (3.5-5.1); SODIUM 138 MMOL/L (135-145); TOTAL CARBON DIOXIDE 23.6 MMOL/L (24-32); TOTAL PROTEIN 6.2 G/DL (6.4-8.2); TRIGLYCERIDES 109 MG/DL (20-135); eCRCL 94 ML/MIN; eGFR 78 ML/MIN
[2023-12-31 08:00] VITALS: RESP 16; O2SAT 98
[2023-12-31] MEDS ORDERED: atorvastatin 20mg tablet PO SCH (08:00)
[2023-12-31] MEDS ORDERED: enoxaparin 40mg/0.4ml syringe SUBCUT SCH (08:00)
[2023-12-31] MEDS: clopidogrel 75mg tablet PO SCH (08:14)
[2023-12-31] MEDS: atorvastatin 20mg tablet PO SCH (08:14)
[2023-12-31] MEDS: aspirin 81mg tab.chew PO SCH (08:14)
[2023-12-31 11:00] VITALS: BP 134/86; PULSE 55; RESP 17; TEMP 97.6; O2SAT 95
== END 2023-12-31 14:30 | disposition left against medical advice (07) | DRG 175 ==
LOC: ER 08:06 → ED HOLD 10:11 → PCU 3S 12:20
PROVIDERS: ADMIT Internal Medicine; ATTEND Internal Medicine
PROC: 027034Z Dilation of Coronary Artery, One Artery with Drug-eluting Intraluminal Device, Percutaneous Approach (ICD-10-PCS; principal; 2023-12-30)
PROC: 4A023N7 Measurement of Cardiac Sampling and Pressure, Left Heart, Percutaneous Approach (ICD-10-PCS; 2023-12-30)
PROC: B2111ZZ Fluoroscopy of Multiple Coronary Arteries using Low Osmolar Contrast (ICD-10-PCS; 2023-12-30)
PROC: B2151ZZ Fluoroscopy of Left Heart using Low Osmolar Contrast (ICD-10-PCS; 2023-12-30)
PROC: B41F1ZZ Fluoroscopy of Right Lower Extremity Arteries using Low Osmolar Contrast (ICD-10-PCS; 2023-12-30)
DX: T82.855A Stenosis of coronary artery stent, initial encounter (principal); I21.3 ST elevation (STEMI) myocardial infarction of unspecified site; I44.7 Left bundle-branch block, unspecified; E78.5 Hyperlipidemia, unspecified; I10 Essential (primary) hypertension; I25.110 Atherosclerotic heart disease of native coronary artery with unstable angina pectoris; R00.1 Bradycardia, unspecified; F14.90 Cocaine use, unspecified, uncomplicated; Y83.1 Surgical operation with implant of artificial internal device as the cause of abnormal reaction of the patient, or of later complication, without mention of misadventure at the time of the procedure; Z53.29 Procedure and treatment not carried out because of patient's decision for other reasons; F10.10 Alcohol abuse, uncomplicated; F17.210 Nicotine dependence, cigarettes, uncomplicated; F41.9 Anxiety disorder, unspecified; G89.29 Other chronic pain; T82.867A Thrombosis due to cardiac prosthetic devices, implants and grafts, initial encounter; Y92.89 Other specified places as the place of occurrence of the external cause; I25.2 Old myocardial infarction; Z80.1 Family history of malignant neoplasm of trachea, bronchus and lung; Z82.5 Family history of asthma and other chronic lower respiratory diseases; Z88.6 Allergy status to analgesic agent; Z88.8 Allergy status to other drugs, medicaments and biological substances; Z79.899 Other long term (current) drug therapy
CPT/HCPCS: 36415; 71045; 80053; 80061; 83036; 83735; 83880; 84484; 85025; 85730; 87081; 93005; 93306; 93312; 93458; 96374; 96375; 96376; 99152; 99153; 99291; A6258; C1725; C1751; C1760; C1874; C9600; C9606; G0378; J1644; J2250; J2270; J2405; J3010; J3246; J3490; J7030; Q9967

== ENCOUNTER 2024-01-07 12:10 | Inpatient (IN) | payer MEDICAID ==
[~2024-01-07] VITALS: Ht 185.4 cm; Wt 97.7 kg
[2024-01-07] VITALS (12 sets, daily range): BP systolic 110–172; BP diastolic 78–97; PULSE 54–61; RESP 18; O2SAT 94–100
[~2024-01-07 12:10] MED LIST changes: -heparin 10,000 units/1 ML INJ ONE
[2024-01-07] MEDS: aspirin 81mg tab.chew PO ONE ×3 (12:15→15:13)
[2024-01-07] MEDS ORDERED: heparin 25,000 UNIT/250ml bag 0 ML IV ONE (12:16)
[2024-01-07] MEDS ORDERED: fentaNYL/PF 50MCG/1 ML 2ML syringe ONE (12:16)
[2024-01-07] MEDS ORDERED: midazolam 1 mg/ML 2ml injection ONE (12:16)
[2024-01-07] MEDS ORDERED: heparin 1,000unit/ml 10ml vial 0 ML ONE (12:16)
[2024-01-07] MEDS ORDERED: tirofiban 12.5mg in NS 250mL 250 ML IV ONE (12:16)
[2024-01-07] MEDS ORDERED: iohexol 350MG/ML 100ml bottle IV ONE (12:16)
[2024-01-07] MEDS ORDERED: LIDOcaine 1% 30ml preserv. free vial ONE (12:23)
[2024-01-07] MEDS: ondansetron/PF 4mg/2ml inj IV ONE (12:25)
[2024-01-07] MEDS: morphine 4 MG/ML inj SYRINge IV ONE (12:25)
[2024-01-07] MEDS: normal saline 1000ml 1,000 ML IV SCH ×2 (12:25→14:30)
[2024-01-07] MEDS ORDERED: iohexol 350 MG/ML 50ML vial IV ONE ×2 (12:26→13:18)
[2024-01-07 12:29] LABS: BASOPHILS # (AUTO) 0.1 X10'3 (0-0.2); BASOPHILS % (AUTO) 0.6 % (0-1); EOSINOPHILS # (AUTO) 0.1 X10'3 (0-0.9); EOSINOPHILS % (AUTO) 0.7 % (0-6); HEMATOCRIT 46.9 % (42.0-52.0); LYMPHOCYTES # (AUTO) 2.1 X10'3 (1.1-4.8); LYMPHOCYTES % (AUTO) 10.2 % (21-51); MEAN CORPUSCULAR HGB CONC 34.2 g/dL (33.0-36.5); MEAN CORPUSCULAR VOLUME 96.7 FL (78-98); MEAN PLATELET VOLUME 8.1 FL (7.4-10.4); MONOCYTES # (AUTO) 0.8 X10'3 (0-0.9); MONOCYTES % (AUTO) 4.1 % (2-12); NEUTROPHILS % (AUTO) 84.4 % (42-75); PLATELET COUNT 299 X10'3 (140-440); RED BLOOD COUNT 4.85 X10'6 (4.70-6.10); WHITE BLOOD COUNT 20.1 X10'3 (4.5-11.0)
[2024-01-07] MEDS: heparin 25,000 UNIT/250ml bag 250 ML IV PRN (12:29)
[2024-01-07] MEDS: heparin 10,000 units/1 ML INJ IV ONE (12:29)
[2024-01-07] MEDS ORDERED: amiodarone 150mg/dext, iso-os 0 ML IV ONE (12:38)
[2024-01-07] MEDS ORDERED: LIDOcaine 2 gm/250ml D5W 250 ML IV ONE ×2 (12:39→12:57)
[2024-01-07] MEDS ORDERED: morphine 2 MG/ML inj. syringe ONE ×2 (12:39→12:41)
[2024-01-07] MEDS ORDERED: amiodarone 50MG/ML inj IV ONE (12:39)
[2024-01-07] MEDS: heparin, porcine 5000 units/ml vial IV ONE (12:40)
[2024-01-07 12:43] LABS: APTT 29 SECONDS (22-32); PROTHROMBIN TIME 10.4 SECONDS (9.0-12.0)
[2024-01-07 12:50] LABS: ALBUMIN 3.6 G/DL (3.4-5.0); ANION GAP 15 (8-16); BLOOD UREA NITROGEN 9 MG/DL (7-18); BUN/CREATININE RATIO 8.5 (10.0-20.0); CALCIUM 8.8 MG/DL (8.5-10.1); CHLORIDE 104 MMOL/L (99-107); CREATININE 1.06 MG/DL (0.60-1.10); GLUCOSE 116 MG/DL (70-104); LIPASE 43 U/L (16-77); POTASSIUM 4.1 MMOL/L (3.5-5.1); PRO BRAIN NATRIURETIC PEPTIDE 48 PG/ML (0-125); SODIUM 140 MMOL/L (135-145); TOTAL CARBON DIOXIDE 21.4 MMOL/L (24-32); eCRCL 88 ML/MIN; eGFR 72 ML/MIN
[2024-01-07] MEDS: LIDOcaine 2 gm/250ml D5W 250 ML IV SCH (13:00)
[2024-01-07] MEDS ORDERED: ticagrelor 90mg tablet ONE (13:28)
[2024-01-07] MEDS ORDERED: aspirin 325mg tablet ONE (13:37)
[2024-01-07] MEDS ORDERED: atropine 0.1mg/ml 10ml syringe ONE (13:51)
[2024-01-07] MEDS ORDERED: acetaminophen 325mg tablet PO PRN (14:30)
[2024-01-07] MEDS ORDERED: magnesium hydroxide 30ml (MOM) UD suspension PO PRN (14:30)
[2024-01-07] MEDS ORDERED: heparin 25,000 UNIT/250ml bag 250 ML IV PRN (14:40)
[2024-01-07] MEDS ORDERED: heparin 10,000 units/1 ML INJ IV PRN (14:40)
[2024-01-07] MEDS ORDERED: heparin 10,000 units/1 ML INJ IV ONE (14:40)
[2024-01-07] MEDS: tirofiban 12.5mg in NS 250mL IV SCH (14:55)
[2024-01-07] MEDS ORDERED: oxyCODONE/APAP 5-325mg tablet PO PRN ×2 (15:00→16:00)
[2024-01-07] MEDS: OXAZEpam 15mg capsule PO PRN (15:13)
[2024-01-07] MEDS: oxyCODONE/APAP 10/325mg tablet PO PRN ×2 (15:14→21:04)
[2024-01-07] MEDS ORDERED: LEVE10006 PO (15:21)
[2024-01-07] MEDS ORDERED: potassium Cl 20 mEq SR tablet PO PRN ×2 (15:55)
[2024-01-07] MEDS ORDERED: magnesium 4gm in 100ml NS 100 ML IV PRN (15:55)
[2024-01-07] MEDS ORDERED: magnesium 2GM in 50ml NS 50 ML IV PRN (15:55)
[2024-01-07] MEDS ORDERED: potassium Cl 40MEQ/1/2NS 520ml 520 ML IV PRN (15:55)
[2024-01-07] MEDS: cyclobenzaprine 10mg tablet PO PRN (16:32)
[2024-01-07] MEDS: morphine 2 MG/ML inj. syringe IV PRN (16:33)
[2024-01-07 18:17] LABS: BASOPHILS % (AUTO) 0.3 % (0-1); EOSINOPHILS % (AUTO) 0.1 % (0-6); HEMATOCRIT 40.2 % (42.0-52.0); HEMOGLOBIN 13.6 g/dl (14.0-17.9); LYMPHOCYTES # (AUTO) 0.9 X10'3 (1.1-4.8); LYMPHOCYTES % (AUTO) 6.8 % (21-51); MEAN CORPUSCULAR HEMOGLOBIN 33.1 PG (27.0-31.0); MEAN CORPUSCULAR HGB CONC 33.9 g/dL (33.0-36.5); MEAN CORPUSCULAR VOLUME 97.6 FL (78-98); MEAN PLATELET VOLUME 8.5 FL (7.4-10.4); MONOCYTES # (AUTO) 0.7 X10'3 (0-0.9); MONOCYTES % (AUTO) 5.4 % (2-12); NEUTROPHILS # (AUTO) 11.7 X10'3 (1.8-7.7); NEUTROPHILS % (AUTO) 87.4 % (42-75); PLATELET COUNT 248 X10'3 (140-440); RED BLOOD COUNT 4.12 X10'6 (4.70-6.10); RED CELL DISTRIBUTION WIDTH 13.8 % (11.5-14.5); WHITE BLOOD COUNT 13.4 X10'3 (4.5-11.0)
[2024-01-07 18:23] LABS: ALBUMIN 3.3 G/DL (3.4-5.0); ANION GAP 11 (8-16); BLOOD UREA NITROGEN 10 MG/DL (7-18); BUN/CREATININE RATIO 12.3 (10.0-20.0); CALCIUM 7.7 MG/DL (8.5-10.1); CHLORIDE 106 MMOL/L (99-107); CREATININE 0.81 MG/DL (0.60-1.10); GLUCOSE 110 MG/DL (70-104); MAGNESIUM 1.8 MG/DL (1.5-2.4); POTASSIUM 3.8 MMOL/L (3.5-5.1); SODIUM 142 MMOL/L (135-145); eCRCL 115 ML/MIN; eGFR > 90 ML/MIN
[2024-01-07] MEDS ORDERED: heparin, porcine 5000 units/ml vial IV SCH (20:00)
[2024-01-07] MEDS: proCHLORperazine 10 MG/2 ml inj IV PRN (21:03)
[2024-01-07] MEDS: ticagrelor 90mg tablet PO SCH (21:04)
[2024-01-07] MEDS: docusate sod 100mg capsule PO SCH (21:04)
[2024-01-07] MEDS: metoprolol tartrate 25mg tablet PO ONE (21:06)
[2024-01-08] VITALS (24 sets, daily range): BP systolic 115–181; BP diastolic 74–111; PULSE 49–62; RESP 18; O2SAT 94–99
[2024-01-08 00:49] LABS: BASOPHILS % (AUTO) 0.5 % (0-1); EOSINOPHILS % (AUTO) 0.2 % (0-6); HEMATOCRIT 38.3 % (42.0-52.0); HEMOGLOBIN 13.1 g/dl (14.0-17.9); LYMPHOCYTES # (AUTO) 1.2 X10'3 (1.1-4.8); LYMPHOCYTES % (AUTO) 13.4 % (21-51); MEAN CORPUSCULAR HEMOGLOBIN 32.9 PG (27.0-31.0); MEAN CORPUSCULAR HGB CONC 34.1 g/dL (33.0-36.5); MEAN CORPUSCULAR VOLUME 96.7 FL (78-98); MONOCYTES # (AUTO) 0.5 X10'3 (0-0.9); MONOCYTES % (AUTO) 5.5 % (2-12); NEUTROPHILS # (AUTO) 7.5 X10'3 (1.8-7.7); NEUTROPHILS % (AUTO) 80.4 % (42-75); PLATELET COUNT 211 X10'3 (140-440); RED BLOOD COUNT 3.97 X10'6 (4.70-6.10); RED CELL DISTRIBUTION WIDTH 13.8 % (11.5-14.5); WHITE BLOOD COUNT 9.3 X10'3 (4.5-11.0)
[2024-01-08 01:02] LABS: ALANINE AMINOTRANSFERASE 60 U/L (12-78); ALBUMIN/GLOBULIN RATIO 1.2 (1.1-1.5); ALKALINE PHOSPHATASE 44 IU/L (46-116); ANION GAP 7 (8-16); ASPARTATE AMINO TRANSFERASE 257 U/L (10-37); BILIRUBIN,TOTAL 0.7 MG/DL (0.1-1.0); BLOOD UREA NITROGEN 9 MG/DL (7-18); CALCIUM 7.5 MG/DL (8.5-10.1); CHLORIDE 109 MMOL/L (99-107); CHOL/HDL RATIO 3.3 (0.00-4.99); CHOLESTEROL 147 MG/DL (0-200); CREATININE 0.75 MG/DL (0.60-1.10); GLUCOSE 104 MG/DL (70-104); HDL CHOLESTEROL 44 MG/DL (35-60); LDL CHOLESTEROL 86 MG/DL (50-100); MAGNESIUM 1.7 MG/DL (1.5-2.4); PHOSPHORUS 3.6 MG/DL (2.3-4.5); POTASSIUM 3.9 MMOL/L (3.5-5.1); SODIUM 140 MMOL/L (135-145); TOTAL CARBON DIOXIDE 24.1 MMOL/L (24-32); TOTAL PROTEIN 5.6 G/DL (6.4-8.2); TRIGLYCERIDES 78 MG/DL (20-135); eCRCL 124 ML/MIN; eGFR > 90 ML/MIN
[2024-01-08] MEDS: metoprolol tartrate 25mg tablet PO SCH (02:09)
[2024-01-08] MEDS: aspirin 81mg tab.chew PO SCH (07:57)
[2024-01-08] MEDS: K and/or MAG REPLACEMENT MC SCH (08:00)
[2024-01-08] MEDS ORDERED: metoprolol succinate 25mg (24-HOUR) SR. Tablet PO SCH (08:00)
[2024-01-08] MEDS: morphine 4 MG/ML inj SYRINge IV PRN (12:58)
[2024-01-08 13:10] LABS: URINE AMPHETAMINE SCREEN NEGATIVE (Neg); URINE BARBITUATE SCREEN NEGATIVE (Neg); URINE BENZODIAZEPINES SCREEN POSITIVE (Neg); URINE CANNABINOID SCREEN POSITIVE (Neg); URINE COCAINE SCREEN NEGATIVE (Neg); URINE METHADONE SCREEN NEGATIVE (Neg); URINE OPIATE SCREEN POSITIVE (Neg); URINE PHENCYCLIDINE SCREEN NEGATIVE (Neg)
[2024-01-08] MEDS ORDERED: LORazepam 2 mg/ml vial IV PRN (17:20)
[2024-01-08] MEDS ORDERED: dextrose 50%-water 50ml dispensing syringe IV PRN (17:20)
[2024-01-08] MEDS ORDERED: haloperidol lactate 5mg/ml inj IM PRN (17:20)
[2024-01-08] MEDS: lisinopril 20mg tablet PO ONE (17:46)
[2024-01-08] MEDS: amLODIPine 2.5mg tablet PO ONE (17:47)
[2024-01-08] MEDS: thiamine 100mg/ml 2ml inj. IV SCH (20:12)
[2024-01-08] MEDS: haloperidol 5mg tablet PO PRN (20:13)
[2024-01-08] MEDS: levetiracetam 250mg tablet PO ONE (22:15)
[2024-01-09] VITALS (18 sets, daily range): BP systolic 105–148; BP diastolic 64–101; PULSE 56–73; RESP 12–24; TEMP 97.1–99.1; O2SAT 95–99
[2024-01-09 04:55] LABS: BASOPHILS % (AUTO) 0.3 % (0-1); EOSINOPHILS % (AUTO) 0.5 % (0-6); HEMATOCRIT 40.6 % (42.0-52.0); HEMOGLOBIN 13.9 g/dl (14.0-17.9); LYMPHOCYTES % (AUTO) 11.8 % (21-51); MEAN CORPUSCULAR HEMOGLOBIN 32.8 PG (27.0-31.0); MEAN CORPUSCULAR HGB CONC 34.2 g/dL (33.0-36.5); MEAN PLATELET VOLUME 8.2 FL (7.4-10.4); MONOCYTES # (AUTO) 0.7 X10'3 (0-0.9); NEUTROPHILS # (AUTO) 6.5 X10'3 (1.8-7.7); NEUTROPHILS % (AUTO) 78.4 % (42-75); PLATELET COUNT 198 X10'3 (140-440); RED BLOOD COUNT 4.23 X10'6 (4.70-6.10); RED CELL DISTRIBUTION WIDTH 13.9 % (11.5-14.5); WHITE BLOOD COUNT 8.3 X10'3 (4.5-11.0)
[2024-01-09 05:10] LABS: ALANINE AMINOTRANSFERASE 52 U/L (12-78); ALBUMIN 2.7 G/DL (3.4-5.0); ALBUMIN/GLOBULIN RATIO 0.8 (1.1-1.5); ALKALINE PHOSPHATASE 48 IU/L (46-116); ANION GAP 8 (8-16); ASPARTATE AMINO TRANSFERASE 150 U/L (10-37); BILIRUBIN,TOTAL 1.1 MG/DL (0.1-1.0); BLOOD UREA NITROGEN 8 MG/DL (7-18); BUN/CREATININE RATIO 9.4 (10.0-20.0); CALCIUM 7.5 MG/DL (8.5-10.1); CHLORIDE 106 MMOL/L (99-107); CREATININE 0.85 MG/DL (0.60-1.10); GLUCOSE 92 MG/DL (70-104); MAGNESIUM 1.5 MG/DL (1.5-2.4); PHOSPHORUS 2.5 MG/DL (2.3-4.5); POTASSIUM 3.8 MMOL/L (3.5-5.1); SODIUM 139 MMOL/L (135-145); TOTAL CARBON DIOXIDE 24.7 MMOL/L (24-32); TOTAL PROTEIN 5.9 G/DL (6.4-8.2); eCRCL 110 ML/MIN; eGFR > 90 ML/MIN
[2024-01-09] MEDS: amLODIPine 2.5mg tablet PO SCH ×2 (08:00→20:30)
[2024-01-09] MEDS: lisinopril 20mg tablet PO SCH (08:00)
[2024-01-09] MEDS: folic acid 1mg/0.2ml inj IV SCH (08:39)
[2024-01-09] MEDS: levetiracetam 250mg tablet PO SCH (20:31)
[2024-01-10 06:00] VITALS: BP 109/73; PULSE 58; RESP 22; TEMP 97.4; O2SAT 96
[2024-01-10 07:25] LABS: BASOPHILS % (AUTO) 0.5 % (0-1); EOSINOPHILS # (AUTO) 0.1 X10'3 (0-0.9); EOSINOPHILS % (AUTO) 0.7 % (0-6); HEMOGLOBIN 14.2 g/dl (14.0-17.9); LYMPHOCYTES % (AUTO) 11.9 % (21-51); MEAN CORPUSCULAR HGB CONC 34.5 g/dL (33.0-36.5); MEAN CORPUSCULAR VOLUME 95.5 FL (78-98); MEAN PLATELET VOLUME 8.5 FL (7.4-10.4); MONOCYTES # (AUTO) 0.9 X10'3 (0-0.9); MONOCYTES % (AUTO) 10.5 % (2-12); NEUTROPHILS # (AUTO) 6.4 X10'3 (1.8-7.7); NEUTROPHILS % (AUTO) 76.4 % (42-75); PLATELET COUNT 211 X10'3 (140-440); RED BLOOD COUNT 4.29 X10'6 (4.70-6.10); RED CELL DISTRIBUTION WIDTH 13.3 % (11.5-14.5); WHITE BLOOD COUNT 8.4 X10'3 (4.5-11.0)
[2024-01-10 07:42] LABS: ALANINE AMINOTRANSFERASE 44 U/L (12-78); ALBUMIN 2.8 G/DL (3.4-5.0); ALBUMIN/GLOBULIN RATIO 0.8 (1.1-1.5); ALKALINE PHOSPHATASE 49 IU/L (46-116); ANION GAP 12 (8-16); ASPARTATE AMINO TRANSFERASE 97 U/L (10-37); BILIRUBIN,TOTAL 1.3 MG/DL (0.1-1.0); BLOOD UREA NITROGEN 7 MG/DL (7-18); BUN/CREATININE RATIO 8.9 (10.0-20.0); CALCIUM 7.9 MG/DL (8.5-10.1); CHLORIDE 103 MMOL/L (99-107); CREATININE 0.79 MG/DL (0.60-1.10); GLUCOSE 88 MG/DL (70-104); MAGNESIUM 1.6 MG/DL (1.5-2.4); PHOSPHORUS 3.5 MG/DL (2.3-4.5); POTASSIUM 3.6 MMOL/L (3.5-5.1); SODIUM 137 MMOL/L (135-145); TOTAL CARBON DIOXIDE 22.4 MMOL/L (24-32); TOTAL PROTEIN 6.3 G/DL (6.4-8.2); eCRCL 118 ML/MIN; eGFR > 90 ML/MIN
[2024-01-10 08:30] VITALS: RESP 22; O2SAT 96
[2024-01-10] MEDS: atorvastatin 10mg tablet PO SCH (09:00)
[2024-01-10] MEDS ORDERED: ATOR10TA PO (09:59)
[2024-01-10] MEDS ORDERED: ASPI81TA53 PO (09:59)
[2024-01-10] MEDS ORDERED: TICA90TA PO (09:59)
[2024-01-10] MEDS ORDERED: METO-539 PO (09:59)
[2024-01-10] MEDS ORDERED: LEVE10006 PO (09:59)
[2024-01-10 11:00] VITALS: BP 114/74; PULSE 67; RESP 12; TEMP 97.7; O2SAT 100
[2024-01-10] MEDS ORDERED: LORazepam 2 mg/ml vial IV PRN (17:20)
[2024-01-10] MEDS ORDERED: LORazepam 1 MG tablet PO PRN (17:20)
[2024-01-10] MEDS ORDERED: METO-395 PO (18:19)
[2024-01-10] MEDS ORDERED: NOR5T PO (18:19)
[2024-01-12] MEDS ORDERED: thiamine 100mg tablet PO SCH (08:00)
[2024-01-12] MEDS ORDERED: LORazepam 2 mg/ml vial IV PRN (17:20)
[2024-01-12] MEDS ORDERED: LORazepam 1 MG tablet PO PRN (17:20)
[2024-01-13] MEDS ORDERED: folic acid 1mg tablet PO SCH (08:00)
== END 2024-01-10 13:19 | disposition home or self-care (01) | DRG 175 ==
LOC: ER 12:11 → CICU 2S 14:11 → PCU 3S 01-09 19:30
PROVIDERS: ADMIT Internal Medicine Cardiovascular Disease; ATTEND Internal Medicine Cardiovascular Disease
PROC: 4A023N7 Measurement of Cardiac Sampling and Pressure, Left Heart, Percutaneous Approach (ICD-10-PCS; principal; 2024-01-07)
PROC: 02703ZZ Dilation of Coronary Artery, One Artery, Percutaneous Approach (ICD-10-PCS; 2024-01-07)
PROC: B211YZZ Fluoroscopy of Multiple Coronary Arteries using Other Contrast (ICD-10-PCS; 2024-01-07)
PROC: B215YZZ Fluoroscopy of Left Heart using Other Contrast (ICD-10-PCS; 2024-01-07)
PROC: B41FYZZ Fluoroscopy of Right Lower Extremity Arteries using Other Contrast (ICD-10-PCS; 2024-01-07)
DX: T82.855A Stenosis of coronary artery stent, initial encounter (principal); I21.19 ST elevation (STEMI) myocardial infarction involving other coronary artery of inferior wall; I47.20 Ventricular tachycardia, unspecified; I10 Essential (primary) hypertension; Z53.29 Procedure and treatment not carried out because of patient's decision for other reasons; I25.10 Atherosclerotic heart disease of native coronary artery without angina pectoris; G40.909 Epilepsy, unspecified, not intractable, without status epilepticus; F60.9 Personality disorder, unspecified; F14.90 Cocaine use, unspecified, uncomplicated; F12.90 Cannabis use, unspecified, uncomplicated; Z95.5 Presence of coronary angioplasty implant and graft; Z88.8 Allergy status to other drugs, medicaments and biological substances; Z79.899 Other long term (current) drug therapy; Z87.891 Personal history of nicotine dependence; Z79.82 Long term (current) use of aspirin; Z91.199 Patient's noncompliance with other medical treatment and regimen due to unspecified reason
CPT/HCPCS: 36415; 71045; 80048; 80053; 80061; 80305; 82948; 83690; 83735; 83880; 84100; 84484; 85025; 85610; 85730; 87081; 93005; 93458; 96365; 96375; 99152; 99153; 99285; A6213; A6258; A6449; C1725; C1760; C1769; C1874; C1894; C9606; G0378; J0282; J0461; J0780; J1644; J2001; J2250; J2270; J3010; J3246; J3411; J3490; J7030; J7040; Q9967

== ENCOUNTER 2024-01-19 14:25 | Inpatient (IN) | payer MEDICAID ==
[~2024-01-19] VITALS: Ht 185.4 cm; Wt 98.9 kg
[2024-01-19] VITALS (13 sets, daily range): BP systolic 135–164; BP diastolic 93–108; PULSE 77–114; RESP 18–28; O2SAT 95–100
[~2024-01-19 14:25] MED LIST changes: +ASPI81TA53 PO; +ATOR10TA PO; -ATOR20TA66 PO; -CYCL-1 PO; -KEP500T PO; -LAMO200T10 PO; -LEVE10002 PO; +LEVE10006 PO; -LURA120T PO; +METO-395 PO; -METO-539 PO; +NOR5T PO; -OXYC-145 PO; -PANT40TA54 PO; +TICA90TA PO; -heparin, porcine-25,000 units/D5-250ml premix IV ONE
[2024-01-19] MEDS ORDERED: heparin 10,000 units/1 ML INJ IV ONE (14:40)
[2024-01-19] MEDS ORDERED: heparin 25,000 UNIT/250ml bag 250 ML IV PRN (14:40)
[2024-01-19] MEDS ORDERED: heparin 10,000 units/1 ML INJ IV PRN (14:40)
[2024-01-19] MEDS ORDERED: midazolam 100mg in NS 100ml 100 ML IV PRN (14:45)
[2024-01-19] MEDS ORDERED: propofol 1000mg/100ml bottle 100 ML IV PRN (14:45)
[2024-01-19] MEDS: LORazepam 2 mg/ml vial ONE (14:46)
[2024-01-19] MEDS: LORazepam 2 mg/ml vial IV ONE ×2 (14:46→14:55)
[2024-01-19] MEDS: LidoCAINE 2% Topical Jelly 11mL syringe (UROJET) TOP ONE (14:50)
[2024-01-19 14:52] LABS: BASOPHILS # (AUTO) 0.1 X10'3 (0-0.2); BASOPHILS % (AUTO) 0.7 % (0-1); EOSINOPHILS # (AUTO) 0.2 X10'3 (0-0.9); EOSINOPHILS % (AUTO) 1.5 % (0-6); HEMATOCRIT 42.9 % (42.0-52.0); HEMOGLOBIN 14.4 g/dl (14.0-17.9); LYMPHOCYTES # (AUTO) 2.6 X10'3 (1.1-4.8); LYMPHOCYTES % (AUTO) 20.5 % (21-51); MEAN CORPUSCULAR HEMOGLOBIN 32.6 PG (27.0-31.0); MEAN CORPUSCULAR HGB CONC 33.6 g/dL (33.0-36.5); MEAN CORPUSCULAR VOLUME 97.1 FL (78-98); MONOCYTES % (AUTO) 7.9 % (2-12); NEUTROPHILS # (AUTO) 8.8 X10'3 (1.8-7.7); NEUTROPHILS % (AUTO) 69.4 % (42-75); PLATELET COUNT 413 X10'3 (140-440); RED BLOOD COUNT 4.42 X10'6 (4.70-6.10); RED CELL DISTRIBUTION WIDTH 13.9 % (11.5-14.5); WHITE BLOOD COUNT 12.7 X10'3 (4.5-11.0)
[2024-01-19] MEDS: propofol 1000mg/100ml bottle 100 ML IV ONE (14:55)
[2024-01-19] MEDS: midazolam 100mg in NS 100 ML INFUSION IV PRN (14:57)
[2024-01-19] MEDS: heparin 10,000 units/1 ML INJ IV ONE (14:57)
[2024-01-19] MEDS ORDERED: adenosine 3mg/ml 2ml vial IV ONE (15:00)
[2024-01-19 15:07] LABS: ALBUMIN 3.1 G/DL (3.4-5.0); ANION GAP 16 (8-16); BLOOD UREA NITROGEN 9 MG/DL (7-18); BUN/CREATININE RATIO 6.9 (10.0-20.0); CALCIUM 8.3 MG/DL (8.5-10.1); CHLORIDE 102 MMOL/L (99-107); CREATININE 1.31 MG/DL (0.60-1.10); GLUCOSE 184 MG/DL (70-104); MAGNESIUM 2.3 MG/DL (1.5-2.4); SODIUM 136 MMOL/L (135-145); TOTAL CARBON DIOXIDE 17.6 MMOL/L (24-32); eCRCL 71 ML/MIN; eGFR 57 ML/MIN
[2024-01-19 15:11] LABS: POTASSIUM 4.6 MMOL/L (3.5-5.1)
[2024-01-19 15:14] LABS: TOTAL CELLS COUNTED 100
[2024-01-19 15:15] LABS: PLATELET ESTIMATE NORMAL
[2024-01-19 15:23] LABS: ABG BASE EXCESS -6.2 mmol/L (-2.0-2.0); ABG HCO3 18.9 mmol/L (22.0-26.0); ABG OXYGEN SATURATION 99.5 % (94-97); ABG PCO2 (T) 33.6 mmHg (35.0-48.0); ABG PH (T) 7.359 (7.340-7.440); ABG PO2 (T) 342.4 mmHg (75.0-100.0); ALLEN'S TEST POSITIVE; FCOHb 2.7 % (0.0-3.9); FHHb 0.5 % (0.0-5.0); FMetHb 0.2 % (0.0-1.5); FO2Hb 96.6 % (94-97); MODE VENT - AC; PATIENT TEMPERATURE 35.1; PEEP 5 cm H2O; RESPIRATORY RATE 16 b/min; TIDAL VOLUME 475 mL; TOTAL HEMOGLOBIN 15.1 G/dl (14.0-17.9)
[2024-01-19 15:25] LABS: BILIRUBIN,URINE NEGATIVE (Neg); CLARITY,URINE SLIGHTLY CLOUDY (Clear); COLOR,URINE YELLOW (Yellow); GLUCOSE, URINE NEGATIVE (Neg); KETONES,URINE NEGATIVE (Neg); LEUKOCYTE ESTERASE ,URINE NEGATIVE (Neg); NITRITES, URINE NEGATIVE (Neg); OCCULT BLOOD,URINE TRACE-INTACT (Neg); PROTEIN,URINE 100 mg/dl (Neg); UROBILINOGEN,URINE 0.2 E.U/dL (0.2-1.0)
[2024-01-19 15:29] LABS: UA COLLECTION TYPE FOLEY CATH
[2024-01-19 15:30] LABS: SQUAMOUS EPITHELIAL CELL,UR NONE SEEN /LPF (FEW)
[2024-01-19 15:33] LABS: BACTERIA,URINE NONE SEEN /HPF (Neg); SPERM MODERATE /HPF (NEGATIVE)
[2024-01-19] MEDS ORDERED: CYCL-1 PO (15:34)
[2024-01-19] MEDS ORDERED: LEVE10006 PO (15:34)
[2024-01-19] MEDS ORDERED: TICA90TA2 PO (15:34)
[2024-01-19] MEDS ORDERED: ATOR10TA70 PO (15:34)
[2024-01-19] MEDS ORDERED: ASPI-1397 PO (15:34)
[2024-01-19] MEDS ORDERED: METO-395 PO (15:34)
[2024-01-19 15:35] LABS: URINE AMPHETAMINE SCREEN NEGATIVE (Neg); URINE BARBITUATE SCREEN NEGATIVE (Neg); URINE BENZODIAZEPINES SCREEN NEGATIVE (Neg); URINE CANNABINOID SCREEN POSITIVE (Neg); URINE COCAINE SCREEN NEGATIVE (Neg); URINE METHADONE SCREEN NEGATIVE (Neg); URINE OPIATE SCREEN NEGATIVE (Neg); URINE PHENCYCLIDINE SCREEN NEGATIVE (Neg)
[2024-01-19] MEDS: ringers solution, lacted 1,000 ML IV SCH (15:50)
[2024-01-19 16:03] LABS: APTT 75 SECONDS (22-32)
[2024-01-19] MEDS: ringers solution, lacted 1,000 ML IV ONE (16:05)
[2024-01-19] MEDS: aspirin 81mg tab.chew NG ONE (17:20)
[2024-01-19] MEDS: levetiracetam inj 500 MG in normal saline 100ml IV soln 100 ML IV SCH (18:21)
[2024-01-19] MEDS: metoprolol tartrate 1mg/ml inj IV ONE (18:39)
[2024-01-19] MEDS ORDERED: ticagrelor 90mg tablet PO SCH (20:00)
[2024-01-19] MEDS ORDERED: levetiracetam 100mg/ml oral solution 5ml UD cup PO SCH (20:00)
[2024-01-19] MEDS: enoxaparin 100mg/ml syringe SUBCUT SCH (20:01)
[2024-01-19] MEDS: ticagrelor 90mg tablet NG SCH (20:01)
[2024-01-19] MEDS: propofol 1000mg/100ml bottle 100 ML IV PRN (20:54)
[2024-01-20] VITALS (38 sets, daily range): BP systolic 117–165; BP diastolic 73–123; PULSE 60–94; RESP 16–37; O2SAT 97–100
[2024-01-20 04:50] LABS: ABG BASE EXCESS -1.1 mmol/L (-2.0-2.0); ABG HCO3 20.6 mmol/L (22.0-26.0); ABG PCO2 (T) 26.9 mmHg (35.0-48.0); ABG PH (T) 7.501 (7.340-7.440); ABG PO2 (T) 124.4 mmHg (75.0-100.0); ALLEN'S TEST Modified; FCOHb 0.7 % (0.0-3.9); FMetHb 0.3 % (0.0-1.5); MODE Vent-AC/PRVC; PATIENT TEMPERATURE 36.8; PEEP 5 cm H2O; RESPIRATORY RATE 16 b/min; TIDAL VOLUME 475 mL; TOTAL HEMOGLOBIN 14.8 G/dl (14.0-17.9)
[2024-01-20 06:11] LABS: BASOPHILS # (AUTO) 0.2 X10'3 (0-0.2); BASOPHILS % (AUTO) 1.9 % (0-1); EOSINOPHILS # (AUTO) 0.1 X10'3 (0-0.9); EOSINOPHILS % (AUTO) 1.1 % (0-6); HEMATOCRIT 46.1 % (42.0-52.0); HEMOGLOBIN 15.7 g/dl (14.0-17.9); LYMPHOCYTES # (AUTO) 0.6 X10'3 (1.1-4.8); LYMPHOCYTES % (AUTO) 4.8 % (21-51); MEAN CORPUSCULAR HEMOGLOBIN 33.1 PG (27.0-31.0); MEAN CORPUSCULAR HGB CONC 33.9 g/dL (33.0-36.5); MEAN CORPUSCULAR VOLUME 97.6 FL (78-98); MEAN PLATELET VOLUME 8.2 FL (7.4-10.4); MONOCYTES # (AUTO) 0.6 X10'3 (0-0.9); MONOCYTES % (AUTO) 4.2 % (2-12); NEUTROPHILS # (AUTO) 11.7 X10'3 (1.8-7.7); PLATELET COUNT 321 X10'3 (140-440); RED BLOOD COUNT 4.72 X10'6 (4.70-6.10); RED CELL DISTRIBUTION WIDTH 13.9 % (11.5-14.5); WHITE BLOOD COUNT 13.3 X10'3 (4.5-11.0)
[2024-01-20 06:30] LABS: ALANINE AMINOTRANSFERASE 54 U/L (12-78); ALBUMIN/GLOBULIN RATIO 0.8 (1.1-1.5); ALKALINE PHOSPHATASE 62 IU/L (46-116); ANION GAP 10 (8-16); ASPARTATE AMINO TRANSFERASE 53 U/L (10-37); BILIRUBIN,TOTAL 0.4 MG/DL (0.1-1.0); BLOOD UREA NITROGEN 11 MG/DL (7-18); BUN/CREATININE RATIO 10.1 (10.0-20.0); CALCIUM 8.4 MG/DL (8.5-10.1); CHLORIDE 105 MMOL/L (99-107); CREATININE 1.09 MG/DL (0.60-1.10); GLUCOSE 91 MG/DL (70-104); MAGNESIUM 2.2 MG/DL (1.5-2.4); PHOSPHORUS 3.4 MG/DL (2.3-4.5); POTASSIUM 3.9 MMOL/L (3.5-5.1); SODIUM 140 MMOL/L (135-145); TOTAL CARBON DIOXIDE 25.1 MMOL/L (24-32); TOTAL PROTEIN 6.8 G/DL (6.4-8.2); eCRCL 86 ML/MIN; eGFR 70 ML/MIN
[2024-01-20 07:41] LABS: CREATINE KINASE 477 U/L (39-308)
[2024-01-20] MEDS: metoprolol tartrate 1mg/ml inj IV PRN (08:44)
[2024-01-20] MEDS: aspirin 81mg tab.chew NG SCH (08:57)
[2024-01-20] MEDS: pantoprazole 40 MG vial IV SCH (08:57)
[2024-01-20] MEDS: normal saline 1000ml 1,000 ML IV ONE ×2 (15:50→16:26)
[2024-01-20] MEDS: mineral oil/petrolatum ophthal oint EACHEYE SCH (19:19)
[2024-01-20] MEDS ORDERED: levetiracetam 250mg tablet PO SCH (20:00)
[2024-01-20] MEDS ORDERED: ticagrelor 90mg tablet PO SCH (20:00)
[2024-01-20] MEDS: levetiracetam inj 1,000 MG in normal saline 100ml IV soln 100 ML IV SCH (20:00)
[2024-01-21] VITALS (22 sets, daily range): BP systolic 120–148; BP diastolic 49–108; PULSE 62–84; RESP 11–21; TEMP 98.1; O2SAT 94–99
[2024-01-21 03:48] LABS: ABG BASE EXCESS 2.2 mmol/L (-2.0-2.0); ABG HCO3 25.2 mmol/L (22.0-26.0); ABG PH (T) 7.487 (7.340-7.440); ALLEN'S TEST Modified; FCOHb 0.2 % (0.0-3.9); FMetHb 0.3 % (0.0-1.5); FO2Hb 95.5 % (94-97); PATIENT TEMPERATURE 37.1; PEEP 5 cm H2O; RESPIRATORY RATE 16 b/min; TIDAL VOLUME 475 mL; TOTAL HEMOGLOBIN 12.8 G/dl (14.0-17.9)
[2024-01-21 06:14] LABS: BASOPHILS % (AUTO) 0.6 % (0-1); EOSINOPHILS # (AUTO) 0.1 X10'3 (0-0.9); EOSINOPHILS % (AUTO) 0.9 % (0-6); HEMATOCRIT 41.2 % (42.0-52.0); HEMOGLOBIN 13.6 g/dl (14.0-17.9); LYMPHOCYTES # (AUTO) 1.1 X10'3 (1.1-4.8); LYMPHOCYTES % (AUTO) 12.7 % (21-51); MEAN CORPUSCULAR HEMOGLOBIN 32.2 PG (27.0-31.0); MEAN CORPUSCULAR VOLUME 97.5 FL (78-98); MEAN PLATELET VOLUME 7.9 FL (7.4-10.4); MONOCYTES % (AUTO) 11.9 % (2-12); NEUTROPHILS # (AUTO) 6.5 X10'3 (1.8-7.7); NEUTROPHILS % (AUTO) 73.9 % (42-75); PLATELET COUNT 269 X10'3 (140-440); RED BLOOD COUNT 4.22 X10'6 (4.70-6.10); RED CELL DISTRIBUTION WIDTH 14.1 % (11.5-14.5); WHITE BLOOD COUNT 8.8 X10'3 (4.5-11.0)
[2024-01-21 06:30] LABS: ALANINE AMINOTRANSFERASE 41 U/L (12-78); ALBUMIN 2.4 G/DL (3.4-5.0); ALBUMIN/GLOBULIN RATIO 0.7 (1.1-1.5); ALKALINE PHOSPHATASE 47 IU/L (46-116); ANION GAP 6 (8-16); ASPARTATE AMINO TRANSFERASE 26 U/L (10-37); BILIRUBIN,TOTAL 0.3 MG/DL (0.1-1.0); BLOOD UREA NITROGEN 7 MG/DL (7-18); BUN/CREATININE RATIO 7.5 (10.0-20.0); CALCIUM 7.9 MG/DL (8.5-10.1); CHLORIDE 108 MMOL/L (99-107); CREATININE 0.93 MG/DL (0.60-1.10); GLUCOSE 97 MG/DL (70-104); MAGNESIUM 1.8 MG/DL (1.5-2.4); PHOSPHORUS 3.4 MG/DL (2.3-4.5); POTASSIUM 3.6 MMOL/L (3.5-5.1); SODIUM 143 MMOL/L (135-145); TOTAL CARBON DIOXIDE 28.7 MMOL/L (24-32); TOTAL PROTEIN 5.8 G/DL (6.4-8.2); eCRCL 100 ML/MIN; eGFR 84 ML/MIN
[2024-01-21] MEDS ORDERED: aspirin 81mg, enteric-coated 1 TAB TABLET.DR PO SCH (08:00)
[2024-01-21] MEDS: LIDOcaine 5% patch TP SCH (09:38)
[2024-01-21] MEDS: atorvastatin 10mg tablet NG SCH (09:40)
[2024-01-21] MEDS: acetaminophen 325mg tablet PO PRN (09:40)
[2024-01-21] MEDS: morphine 4 MG/ML inj SYRINge IV PRN (10:02)
[2024-01-21] MEDS: levetiracetam 250mg tablet PO SCH (20:05)
[2024-01-21] MEDS: ticagrelor 90mg tablet PO SCH (20:05)
[2024-01-21] MEDS: enoxaparin 40mg/0.4ml syringe SUBCUT SCH (20:07)
[2024-01-22] VITALS (7 sets, daily range): BP systolic 120–153; BP diastolic 60–88; PULSE 57–72; RESP 12–19; TEMP 97–98.8; O2SAT 97–99
[2024-01-22 07:12] LABS: BASOPHILS % (AUTO) 0.4 % (0-1); EOSINOPHILS # (AUTO) 0.1 X10'3 (0-0.9); EOSINOPHILS % (AUTO) 1.1 % (0-6); HEMATOCRIT 33.9 % (42.0-52.0); HEMOGLOBIN 11.6 g/dl (14.0-17.9); LYMPHOCYTES % (AUTO) 15.9 % (21-51); MEAN CORPUSCULAR HEMOGLOBIN 32.5 PG (27.0-31.0); MEAN CORPUSCULAR HGB CONC 34.1 g/dL (33.0-36.5); MEAN CORPUSCULAR VOLUME 95.3 FL (78-98); MEAN PLATELET VOLUME 7.7 FL (7.4-10.4); MONOCYTES # (AUTO) 0.6 X10'3 (0-0.9); MONOCYTES % (AUTO) 8.5 % (2-12); NEUTROPHILS # (AUTO) 4.8 X10'3 (1.8-7.7); NEUTROPHILS % (AUTO) 74.1 % (42-75); PLATELET COUNT 209 X10'3 (140-440); RED BLOOD COUNT 3.56 X10'6 (4.70-6.10); RED CELL DISTRIBUTION WIDTH 13.7 % (11.5-14.5); WHITE BLOOD COUNT 6.5 X10'3 (4.5-11.0)
[2024-01-22 07:42] LABS: ALANINE AMINOTRANSFERASE 27 U/L (12-78); ALBUMIN 2.1 G/DL (3.4-5.0); ALBUMIN/GLOBULIN RATIO 0.7 (1.1-1.5); ALKALINE PHOSPHATASE 40 IU/L (46-116); ANION GAP 9 (8-16); ASPARTATE AMINO TRANSFERASE 23 U/L (10-37); BILIRUBIN,TOTAL 0.6 MG/DL (0.1-1.0); BLOOD UREA NITROGEN 6 MG/DL (7-18); BUN/CREATININE RATIO 7.8 (10.0-20.0); CALCIUM 7.3 MG/DL (8.5-10.1); CHLORIDE 105 MMOL/L (99-107); CREATININE 0.77 MG/DL (0.60-1.10); GLUCOSE 91 MG/DL (70-104); MAGNESIUM 1.6 MG/DL (1.5-2.4); PHOSPHORUS 2.9 MG/DL (2.3-4.5); POTASSIUM 3.3 MMOL/L (3.5-5.1); PREALBUMIN 15.5 MG/DL (19-36); SODIUM 137 MMOL/L (135-145); TOTAL PROTEIN 5.2 G/DL (6.4-8.2); eCRCL 121 ML/MIN; eGFR > 90 ML/MIN
[2024-01-22] MEDS: aspirin 81mg tab.chew PO SCH (07:47)
[2024-01-22] MEDS: pantoprazole 40mg Tablet.DR PO SCH (07:48)
[2024-01-22] MEDS: atorvastatin 10mg tablet PO SCH (07:48)
[2024-01-22] MEDS ORDERED: potassium Cl 40MEQ/1/2NS 520ml 520 ML IV PRN (14:45)
[2024-01-22] MEDS ORDERED: potassium Cl 20 mEq SR tablet PO PRN (14:45)
[2024-01-22] MEDS ORDERED: magnesium Cl slow-release 64mg tablet PO PRN (14:45)
[2024-01-22] MEDS ORDERED: magnesium 4gm in 100ml NS 100 ML IV PRN (14:45)
[2024-01-22] MEDS ORDERED: magnesium 2GM in 50ml NS 50 ML IV PRN (14:45)
[2024-01-22] MEDS: HYDROcodone/acetaminophen 10/325mg tab PO PRN (17:29)
[2024-01-22] MEDS: K and/or MAG REPLACEMENT MC SCH (20:00)
[2024-01-22] MEDS: potassium Cl 20 mEq SR tablet PO PRN (21:36)
[2024-01-23 02:00] VITALS: BP 133/81; PULSE 65; RESP 10; TEMP 97.8; O2SAT 98
[2024-01-23] MEDS: haloperidol lactate 5mg/ml inj IM STA (06:43)
[2024-01-23 06:44] VITALS: RESP 20
[2024-01-23] MEDS: morphine 2 MG/ML inj. syringe IV PRN (06:44)
[2024-01-23] MEDS ORDERED: atorvastatin 20mg tablet PO SCH (08:00)
[2024-01-23] MEDS ORDERED: lisinopril 5mg tablet PO SCH (22:25)
[2024-01-24] MEDS ORDERED: pantoprazole 40mg Tablet.DR PO SCH (07:30)
[2024-01-24] MEDS ORDERED: lisinopril 5mg tablet PO SCH (08:00)
[2024-01-24] MEDS ORDERED: ATOR40TA72 PO (09:31)
[2024-01-24] MEDS ORDERED: POTA-207 PO (09:31)
== END 2024-01-23 09:00 | disposition left against medical advice (07) | DRG 190 ==
LOC: ER 14:25 → CICU 2S 16:39 → EDBEDREQTM 16:49 → PCU 3S 01-21 15:19 → UNDODISIN 01-22 16:30
PROVIDERS: ADMIT Internal Medicine Critical Care Medicine; ATTEND Internal Medicine Critical Care Medicine
PROC: 4A10X4Z Monitoring of Central Nervous Electrical Activity, External Approach (ICD-10-PCS; principal; 2024-01-19)
PROC: 5A1945Z Respiratory Ventilation, 24-96 Consecutive Hours (ICD-10-PCS; 2024-01-19)
PROC: 0BH17EZ Insertion of Endotracheal Airway into Trachea, Via Natural or Artificial Opening (ICD-10-PCS; 2024-01-19)
DX: I21.19 ST elevation (STEMI) myocardial infarction involving other coronary artery of inferior wall (principal); J96.01 Acute respiratory failure with hypoxia; I46.9 Cardiac arrest, cause unspecified; N17.0 Acute kidney failure with tubular necrosis; G40.909 Epilepsy, unspecified, not intractable, without status epilepticus; I25.10 Atherosclerotic heart disease of native coronary artery without angina pectoris; E78.00 Pure hypercholesterolemia, unspecified; G93.1 Anoxic brain damage, not elsewhere classified; F41.9 Anxiety disorder, unspecified; G89.29 Other chronic pain; R41.3 Other amnesia; Z53.29 Procedure and treatment not carried out because of patient's decision for other reasons; J32.3 Chronic sphenoidal sinusitis; E87.6 Hypokalemia; I12.9 Hypertensive chronic kidney disease with stage 1 through stage 4 chronic kidney disease, or unspecified chronic kidney disease; N18.30 Chronic kidney disease, stage 3 unspecified; F07.81 Postconcussional syndrome; F12.10 Cannabis abuse, uncomplicated; I25.2 Old myocardial infarction; Z72.0 Tobacco use; Z95.5 Presence of coronary angioplasty implant and graft; Z91.199 Patient's noncompliance with other medical treatment and regimen due to unspecified reason; Z95.1 Presence of aortocoronary bypass graft; Z88.8 Allergy status to other drugs, medicaments and biological substances; Z88.6 Allergy status to analgesic agent; Z79.82 Long term (current) use of aspirin; Z79.899 Other long term (current) drug therapy
CPT/HCPCS: 36415; 36600; 70450; 70551; 71045; 80048; 80053; 80305; 80320; 81001; 82550; 82803; 82948; 83735; 84100; 84132; 84134; 84484; 85007; 85018; 85025; 85610; 85730; 87070; 87081; 93005; 93308; 94002; 94003; 94760; 95720; 96360; 97161; 97530; 99291; A6213; C1758; C9113; G0378; J0153; J1630; J1644; J1650; J1953; J2060; J2270; J2704; J3490; J7030; J7120

== ENCOUNTER 2024-01-23 16:42 | Observation (INO) | payer MEDICAID ==
[~2024-01-23] VITALS: Ht 185.4 cm; Wt 94.1 kg
[~2024-01-23 16:42] MED LIST changes: +ASPI-1397 PO; -ASPI81TA53 PO; -ATOR10TA PO; +ATOR10TA70 PO; -METO-395 PO; -NOR5T PO; -TICA90TA PO; +TICA90TA2 PO
[2024-01-23 17:16] LABS: BASOPHILS % (AUTO) 0.5 % (0-1); EOSINOPHILS % (AUTO) 0.2 % (0-6); HEMATOCRIT 37.3 % (42.0-52.0); HEMOGLOBIN 12.7 g/dl (14.0-17.9); LYMPHOCYTES # (AUTO) 0.6 X10'3 (1.1-4.8); LYMPHOCYTES % (AUTO) 5.7 % (21-51); MEAN CORPUSCULAR HEMOGLOBIN 32.5 PG (27.0-31.0); MEAN CORPUSCULAR HGB CONC 34.2 g/dL (33.0-36.5); MEAN CORPUSCULAR VOLUME 95.2 FL (78-98); MONOCYTES # (AUTO) 0.6 X10'3 (0-0.9); MONOCYTES % (AUTO) 6.4 % (2-12); NEUTROPHILS # (AUTO) 8.8 X10'3 (1.8-7.7); NEUTROPHILS % (AUTO) 87.2 % (42-75); PLATELET COUNT 258 X10'3 (140-440); RED BLOOD COUNT 3.92 X10'6 (4.70-6.10); RED CELL DISTRIBUTION WIDTH 13.5 % (11.5-14.5); WHITE BLOOD COUNT 10.1 X10'3 (4.5-11.0)
[2024-01-23 17:43] LABS: ALBUMIN 2.9 G/DL (3.4-5.0); ANION GAP 9 (8-16); BLOOD UREA NITROGEN 6 MG/DL (7-18); BUN/CREATININE RATIO 6.3 (10.0-20.0); CALCIUM 8.6 MG/DL (8.5-10.1); CHLORIDE 104 MMOL/L (99-107); CREATININE 0.95 MG/DL (0.60-1.10); GLUCOSE 101 MG/DL (70-104); POTASSIUM 3.5 MMOL/L (3.5-5.1); PRO BRAIN NATRIURETIC PEPTIDE 3741 PG/ML (0-125); SODIUM 140 MMOL/L (135-145); TOTAL CARBON DIOXIDE 27.1 MMOL/L (24-32); eCRCL 98 ML/MIN; eGFR 82 ML/MIN
[2024-01-23] MEDS ORDERED: mag hydrox/Alum hydrox/simeth 30ml oral suspension PO PRN (22:05)
[2024-01-23] MEDS ORDERED: potassium Cl 20 mEq SR tablet PO PRN (22:05)
[2024-01-23] MEDS ORDERED: acetaminophen 325mg tablet PO PRN (22:05)
[2024-01-23] MEDS ORDERED: ondansetron/PF 4mg/2ml inj IV PRN (22:05)
[2024-01-23] MEDS ORDERED: magnesium Cl slow-release 64mg tablet PO PRN (22:05)
[2024-01-23] MEDS ORDERED: potassium Cl 40MEQ/1/2NS 520ml 520 ML IV PRN (22:05)
[2024-01-23] MEDS ORDERED: magnesium 2GM in 50ml NS 50 ML IV PRN (22:05)
[2024-01-23] MEDS ORDERED: magnesium hydroxide 30ml (MOM) UD suspension PO PRN (22:05)
[2024-01-23] MEDS ORDERED: morphine 2 MG/ML inj. syringe IV PRN ×2 (22:05)
[2024-01-23] MEDS ORDERED: magnesium 4gm in 100ml NS 100 ML IV PRN (22:05)
[2024-01-23] MEDS: levetiracetam 250mg tablet PO SCH (23:15)
[2024-01-24 04:30] VITALS: BP 133/79; PULSE 63; RESP 11; TEMP 98.2; O2SAT 100
[2024-01-24 04:59] LABS: ALANINE AMINOTRANSFERASE 28 U/L (12-78); ALBUMIN 2.6 G/DL (3.4-5.0); ALBUMIN/GLOBULIN RATIO 0.7 (1.1-1.5); ALKALINE PHOSPHATASE 53 IU/L (46-116); ANION GAP 13 (8-16); ASPARTATE AMINO TRANSFERASE 31 U/L (10-37); BILIRUBIN,TOTAL 0.8 MG/DL (0.1-1.0); BLOOD UREA NITROGEN 5 MG/DL (7-18); BUN/CREATININE RATIO 6.4 (10.0-20.0); CHLORIDE 103 MMOL/L (99-107); CREATININE 0.78 MG/DL (0.60-1.10); GLUCOSE 71 MG/DL (70-104); MAGNESIUM 1.8 MG/DL (1.5-2.4); POTASSIUM 3.3 MMOL/L (3.5-5.1); SODIUM 139 MMOL/L (135-145); TOTAL CARBON DIOXIDE 23.4 MMOL/L (24-32); TOTAL PROTEIN 6.3 G/DL (6.4-8.2); eCRCL 120 ML/MIN; eGFR > 90 ML/MIN
[2024-01-24 05:14] LABS: EOSINOPHILS # (AUTO) 0.1 X10'3 (0-0.9); MONOCYTES # (AUTO) 0.8 X10'3 (0-0.9); RED CELL DISTRIBUTION WIDTH 13.6 % (11.5-14.5); WHITE BLOOD COUNT 7.7 X10'3 (4.5-11.0)
[2024-01-24 05:15] LABS: BASOPHILS % (AUTO) 0.4 % (0-1); EOSINOPHILS % (AUTO) 1.2 % (0-6); HEMATOCRIT 34.9 % (42.0-52.0); HEMOGLOBIN 11.9 g/dl (14.0-17.9); LYMPHOCYTES % (AUTO) 12.4 % (21-51); MEAN CORPUSCULAR HEMOGLOBIN 32.7 PG (27.0-31.0); MEAN CORPUSCULAR HGB CONC 34.1 g/dL (33.0-36.5); MEAN CORPUSCULAR VOLUME 95.9 FL (78-98); MEAN PLATELET VOLUME 8.7 FL (7.4-10.4); NEUTROPHILS # (AUTO) 5.8 X10'3 (1.8-7.7); PLATELET COUNT 230 X10'3 (140-440); RED BLOOD COUNT 3.64 X10'6 (4.70-6.10)
[2024-01-24 06:00] VITALS: BP 132/63; PULSE 74; RESP 15; TEMP 99; O2SAT 97
[2024-01-24] MEDS: ticagrelor 90mg tablet PO SCH (07:16)
[2024-01-24] MEDS: atorvastatin 20mg tablet PO SCH (07:17)
[2024-01-24] MEDS: aspirin 81mg, enteric-coated 1 TAB TABLET.DR PO SCH (07:17)
[2024-01-24] MEDS: potassium Cl 20 mEq SR tablet PO PRN (07:21)
[2024-01-24] MEDS: K and/or MAG REPLACEMENT MC SCH (07:59)
[2024-01-24] MEDS: docusate sod 100mg capsule PO SCH (08:00)
[2024-01-24] MEDS ORDERED: ATOR40TA72 PO (09:31)
[2024-01-24] MEDS ORDERED: POTA-207 PO (09:31)
== END 2024-01-24 10:30 | disposition home or self-care (01) ==
LOC: ER 16:43 → INTOOBSV 22:01 → UNDOADMOB 22:01 → ED HOLD 22:01 → PCU 3S 22:07 → ED HOLD 01-24 04:39 → PCU 3S 01-24 04:39 → UNDODISOB 01-24 10:30
PROVIDERS: ADMIT Internal Medicine; ATTEND Family Medicine
DX: I21.19 ST elevation (STEMI) myocardial infarction involving other coronary artery of inferior wall (principal); I25.10 Atherosclerotic heart disease of native coronary artery without angina pectoris; G93.41 Metabolic encephalopathy; E87.6 Hypokalemia; E78.5 Hyperlipidemia, unspecified; I10 Essential (primary) hypertension; G40.909 Epilepsy, unspecified, not intractable, without status epilepticus; K29.70 Gastritis, unspecified, without bleeding; G89.29 Other chronic pain; M54.9 Dorsalgia, unspecified; F41.9 Anxiety disorder, unspecified; E78.00 Pure hypercholesterolemia, unspecified; F14.10 Cocaine abuse, uncomplicated; F12.10 Cannabis abuse, uncomplicated; I25.2 Old myocardial infarction; Z53.29 Procedure and treatment not carried out because of patient's decision for other reasons; Z86.74 Personal history of sudden cardiac arrest; Z95.1 Presence of aortocoronary bypass graft; Z95.5 Presence of coronary angioplasty implant and graft; Z79.899 Other long term (current) drug therapy
CPT/HCPCS: 36415; 71045; 80048; 80053; 83735; 83880; 84484; 85025; 87081; 93005; 99285; G0378

== ENCOUNTER 2024-03-30 11:40 | Emergency (ER) | payer MEDICAID ==
[~2024-03-30] VITALS: Ht 185.4 cm; Wt 85.9 kg
[~2024-03-30 11:40] MED LIST changes: -ATOR10TA70 PO; +ATOR40TA72 PO; +POTA-207 PO
[2024-03-30 11:56] VITALS: TEMP 98.5
[2024-03-30 12:04] LABS: BASOPHILS % (AUTO) 0.5 % (0-1); EOSINOPHILS # (AUTO) 0.1 X10'3 (0-0.9); EOSINOPHILS % (AUTO) 1.3 % (0-6); HEMATOCRIT 45.6 % (42.0-52.0); HEMOGLOBIN 15.1 g/dl (14.0-17.9); LYMPHOCYTES # (AUTO) 1.3 X10'3 (1.1-4.8); LYMPHOCYTES % (AUTO) 19.8 % (21-51); MEAN CORPUSCULAR HEMOGLOBIN 31.1 PG (27.0-31.0); MEAN CORPUSCULAR HGB CONC 33.2 g/dL (33.0-36.5); MEAN CORPUSCULAR VOLUME 93.9 FL (78-98); MEAN PLATELET VOLUME 7.7 FL (7.4-10.4); MONOCYTES # (AUTO) 0.8 X10'3 (0-0.9); MONOCYTES % (AUTO) 11.7 % (2-12); NEUTROPHILS # (AUTO) 4.3 X10'3 (1.8-7.7); NEUTROPHILS % (AUTO) 66.7 % (42-75); PLATELET COUNT 241 X10'3 (140-440); RED BLOOD COUNT 4.86 X10'6 (4.70-6.10); RED CELL DISTRIBUTION WIDTH 14.8 % (11.5-14.5); WHITE BLOOD COUNT 6.4 X10'3 (4.5-11.0)
[2024-03-30 13:37] LABS: ALBUMIN 3.6 G/DL (3.4-5.0); ANION GAP 11 (8-16); BLOOD UREA NITROGEN 7 MG/DL (7-18); BUN/CREATININE RATIO 7.8 (10.0-20.0); CALCIUM 8.7 MG/DL (8.5-10.1); CHLORIDE 104 MMOL/L (99-107); GLUCOSE 84 MG/DL (70-104); PRO BRAIN NATRIURETIC PEPTIDE 363 PG/ML (0-125); SODIUM 137 MMOL/L (135-145); TOTAL CARBON DIOXIDE 21.7 MMOL/L (24-32); eCRCL 104 ML/MIN; eGFR 87 ML/MIN
[2024-03-30 14:10] VITALS: BP 134/95; PULSE 66; RESP 13; O2SAT 100
== END 2024-03-30 14:13 | disposition home or self-care (01) ==
LOC: ER 11:40
DX: R07.89 Other chest pain (principal); E78.00 Pure hypercholesterolemia, unspecified; I10 Essential (primary) hypertension; F41.9 Anxiety disorder, unspecified; I25.10 Atherosclerotic heart disease of native coronary artery without angina pectoris; F10.90 Alcohol use, unspecified, uncomplicated; F12.90 Cannabis use, unspecified, uncomplicated; F14.90 Cocaine use, unspecified, uncomplicated; Z95.5 Presence of coronary angioplasty implant and graft; Z98.890 Other specified postprocedural states; Z88.8 Allergy status to other drugs, medicaments and biological substances; Z79.899 Other long term (current) drug therapy; Z72.89 Other problems related to lifestyle
CPT/HCPCS: 36415; 71045; 80048; 83880; 84484; 85025; 93005; 99285

== ENCOUNTER 2024-09-08 10:06 | Emergency (ER) | payer MEDICAID ==
[~2024-09-08] VITALS: Ht 185.4 cm; Wt 91.2 kg
[2024-09-08] MEDS ORDERED: LACO100T4 (10:21)
[2024-09-08 11:42] LABS: BASOPHILS % (AUTO) 0.3 % (0-1); EOSINOPHILS % (AUTO) 0 % (0-6); HEMATOCRIT 43.7 % (42.0-52.0); HEMOGLOBIN 14.7 g/dl (14.0-17.9); LYMPHOCYTES # (AUTO) 0.4 X10'3 (1.1-4.8); LYMPHOCYTES % (AUTO) 6.1 % (21-51); MEAN CORPUSCULAR HGB CONC 33.8 g/dL (33.0-36.5); MEAN CORPUSCULAR VOLUME 97.7 FL (78-98); MEAN PLATELET VOLUME 7.8 FL (7.4-10.4); MONOCYTES # (AUTO) 0.6 X10'3 (0-0.9); MONOCYTES % (AUTO) 8.9 % (2-12); NEUTROPHILS # (AUTO) 5.8 X10'3 (1.8-7.7); NEUTROPHILS % (AUTO) 84.7 % (42-75); PLATELET COUNT 183 X10'3 (140-440); RED BLOOD COUNT 4.47 X10'6 (4.70-6.10); RED CELL DISTRIBUTION WIDTH 16.1 % (11.5-14.5); WHITE BLOOD COUNT 6.8 X10'3 (4.5-11.0)
[2024-09-08 11:56] LABS: ALANINE AMINOTRANSFERASE 42 U/L (12-78); ALBUMIN 3.6 G/DL (3.4-5.0); ALKALINE PHOSPHATASE 42 IU/L (46-116); ANION GAP 9 (8-16); ASPARTATE AMINO TRANSFERASE 34 U/L (10-37); BILIRUBIN,TOTAL 0.5 MG/DL (0.1-1.0); BLOOD UREA NITROGEN 6 MG/DL (7-18); BUN/CREATININE RATIO 5.5 (10.0-20.0); CALCIUM 8.1 MG/DL (8.5-10.1); CHLORIDE 103 MMOL/L (99-107); CREATININE 1.09 MG/DL (0.60-1.10); GLUCOSE 99 MG/DL (70-104); SODIUM 135 MMOL/L (135-145); TOTAL CARBON DIOXIDE 23.1 MMOL/L (24-32); TOTAL PROTEIN 7.1 G/DL (6.4-8.2); eCRCL 85 ML/MIN; eGFR 70 ML/MIN
[2024-09-08] MEDS: normal saline 1000ml 1,000 ML IV ONE (12:15)
[2024-09-08] MEDS: aspirin 81mg tab.chew PO ONE (12:16)
[2024-09-08] MEDS: levetiracetam 250mg tablet PO ONE (12:16)
[2024-09-08] MEDS: acetaminophen 325mg tablet PO ONE (12:17)
[2024-09-08] MEDS: ticagrelor 90mg tablet PO ONE (12:17)
[2024-09-08 12:19] LABS: ETHANOL < 10 MG/DL (<10)
[2024-09-08] MEDS: LACOSAMIDE (Vimpat) 100mg/10ml (10 MG/ML) oral UD solution PO ONE (12:59)
[2024-09-08] MEDS: normal saline 1000ML IV soln IVB ONE (13:13)
[2024-09-08] MEDS ORDERED: ACET-1008 PO (15:07)
[2024-09-08 15:27] VITALS: BP 144/74; PULSE 75; RESP 16; TEMP 98; O2SAT 97
== END 2024-09-08 15:29 | disposition home or self-care (01) ==
LOC: ER 10:07
DX: U07.1 COVID-19 (principal); Z20.822 Contact with and (suspected) exposure to COVID-19; G40.909 Epilepsy, unspecified, not intractable, without status epilepticus; I25.10 Atherosclerotic heart disease of native coronary artery without angina pectoris; I10 Essential (primary) hypertension; G89.29 Other chronic pain; E78.00 Pure hypercholesterolemia, unspecified; I25.2 Old myocardial infarction; Z88.5 Allergy status to narcotic agent; Z88.6 Allergy status to analgesic agent; Z79.899 Other long term (current) drug therapy; Z79.02 Long term (current) use of antithrombotics/antiplatelets; Z87.19 Personal history of other diseases of the digestive system; Z95.1 Presence of aortocoronary bypass graft; Z86.74 Personal history of sudden cardiac arrest; Z87.891 Personal history of nicotine dependence
CPT/HCPCS: 36415; 71045; 80053; 80320; 84484; 85025; 87502; 87503; 87811; 96360; 96361; 99284; J7030